=== PATIENT | male | born 1955 | race African-American/Black ===

== ENCOUNTER 2020-03-21 18:38 | Emergency (ER) | payer OTHER ==
[~2020-03-21] VITALS: Ht 180.3 cm; Wt 99.8 kg
[~2020-03-21 18:38] MED LIST: AMIODARONE HCL400 MG PO; ASA81BEC PO; BENAZEPRIL HCL40 MG PO; CARVEDILOL25 MG PO; CLONIDINE HCL0.1 M1 PO; FUROSEMIDE 20 M20 MG PO; GLIMEPIRIDE1 MG PO; ISOSORBIDE DINI20 M2 PO; KLOR-CON M2020 MEQ PO; LIPITOR 20 MG T20 M1 PO; VITAMIN D-40010 MCG PO; XARELTO15 MG PO; ZITHROMAX TRI-500 MG PO
[2020-03-21 23:44] VITALS: BP 145/85
== END 2020-03-21 23:45 ==
LOC: ER 18:38
DX: T85.698A Other mechanical complication of other specified internal prosthetic devices, implants and grafts, initial encounter (principal); I48.91 Unspecified atrial fibrillation; E78.5 Hyperlipidemia, unspecified; I13.0 Hypertensive heart and chronic kidney disease with heart failure and stage 1 through stage 4 chronic kidney disease, or unspecified chronic kidney disease; E11.22 Type 2 diabetes mellitus with diabetic chronic kidney disease; N18.4 Chronic kidney disease, stage 4 (severe); I50.9 Heart failure, unspecified; Z79.899 Other long term (current) drug therapy

== ENCOUNTER 2020-04-02 02:11 | Inpatient (IN) | payer OTHER ==
[2020-04-02] VITALS (54 sets, daily range): BP systolic 125–166; BP diastolic 72–96
[~2020-04-02] VITALS: Ht 180.3 cm; Wt 89.4 kg
[2020-04-02 02:44] LABS: BE(vivo) 5.2 mmol/L (-2 to +3); HCO3 29.8 mmol/L (22.0-26.0); PCO2 44.5 mmHg (35.0-45.0); PO2 56.9 mmHg (80.0-100.0); pH 7.444 (7.360-7.450); sO2 90.5 % (92.0-98.0)
[2020-04-02] MEDS ORDERED: PROAIR HFA8.5 GM INH (03:03)
[2020-04-02] MEDS ORDERED: HYDROCODON-ACE1 EAC7 PO (03:04)
[2020-04-02] MEDS ORDERED: LOPERAMIDE 2 MG2 M1 PO (03:04)
[2020-04-02] MEDS ORDERED: HUMALOG100 UNIT/1 SUBQ (03:05)
[2020-04-02] MEDS ORDERED: ELIQUIS5 MG PO (03:05)
[2020-04-02] MEDS ORDERED: CARVEDILOL12.5 MG PO (03:06)
[2020-04-02] MEDS ORDERED: HYDRALAZINE 2525 M1 PO (03:06)
[2020-04-02] MEDS ORDERED: SENNA8.6 MG PO (03:09)
[2020-04-02] MEDS ORDERED: ZOSYN 2.252.25 GM/51 IV (03:12)
[2020-04-02] MEDS ORDERED: PROTONIX40 M2 PO (03:12)
[2020-04-02] MEDS ORDERED: VITAMIN D310 MC4 PO (03:15)
[2020-04-02] MEDS ORDERED: LANTUS SUBQ (03:16)
[2020-04-02] MEDS ORDERED: PACERONE200 MG PO (03:16)
[2020-04-02 04:07] LABS: MCHC 31.4 g/dL (28.0-37.0); RDW 21.4 % (10.5-14.5)
[2020-04-02 04:11] LABS: MCH 26.2 pg (26.0-34.0); MCV 83.5 fL (80.0-100.0); PLATELET COUNT 200 thou/uL (150-400); RBC 2.38 mil/uL (4.50-6.00); WBC 7.3 thou/uL (4.0-11.0)
[2020-04-02 04:13] LABS: ANION GAP 6 mmol/L (7-16); BUN 31 mg/dL (7-18); CALCIUM 8.1 mg/dL (8.5-10.1); CHLORIDE 101 mmol/L (98-107); CO2 31 mmol/L (21-32); CREATININE 4.7 mg/dL (0.7-1.3); GLUCOSE 98 mg/dL (74-106); SODIUM 138 mmol/L (136-145)
[2020-04-02 04:15] LABS: POTASSIUM 4.8 mmol/L (3.5-5.1)
[2020-04-02 04:18] LABS: HEMOGLOBIN 6.3 gm/dL (14.0-18.0)
[2020-04-02 04:19] LABS: HEMATOCRIT 19.9 % (42.0-52.0)
[2020-04-02 04:25] LABS: MAGNESIUM 1.9 mg/dL (1.8-2.4); PHOSPHORUS 2.4 mg/dL (2.6-4.7); SGOT 53 U/L (15-37); SGPT 16 U/L (16-63); TOTAL BILIRUBIN 0.5 mg/dL (0.2-1.0); TOTAL PROTEIN 6.7 g/dL (6.4-8.2); TROPONIN-I <0.06 ng/mL (<0.06)
[2020-04-02 05:00] LABS: ANISOCYTOSIS 2+; HYPOCHROMASIA 2+; LARGE PLATELETS FEW; MICROCYTES 1+; POLYCHROMASIA 1+
[2020-04-02] MEDS ORDERED: PROCRIT10000 UNIT SUBQ (05:30)
--- NOTE | 2020-04-02 07:21 | EKG ---
[place] [address] [facility] [place] [address] ELECTROCARDIOGRAM REPORT Name: STEFANI WHITTEN Room #: 170-8 ADM IN M.R.#: [id number] Admission: 04/02/20 Attend Phys: Yaneli Mauricio Discharge: Date of : 51 Report #: [id number] [facility] ED Test Date: 2020-04-02 Test Time: 02:42:39 Pat Name: STEFANI WHITTEN Department: Room: 170 Gender: M Nurse Extern: PAYTON : 1955 Requested By: Jairo Cortes Order Number: [id number] MD: Rene Jordan Measurements Intervals [place] Rate: 69 P: -31 DE: 184 QRS: -11 QRSD: 100 T: 181 QT: 471 QTc: 505 Interpretive Statements Sinus rhythm Atrial premature complex Nonspecific repol abnormality, diffuse leads Baseline wander in lead(s) V2,V3,V6 No previous ECG available for comparison Electronically Signed On 04-02-2020 7:20:49 PIG CONVEYOR OPERATOR by Rene Jordan [email or web address] <ELECTRONICALLY SIGNED> By: Rene Jordan MD, [facility] 04/02/20 0720 1 1 Rene Jordan MD, FACC /EPI
--- NOTE | 2020-04-02 12:06 | NUR ---
THIS NURSE SPOKE WITH DR BANKS REGARDING PT'S COVID STATUS PER FACILITY ([facility]), PT TESTED POSITIVE AT FACILITY YESTERDAY AND HAS NOT BEEN TESTED IN THIS DEPARTMENT. RESULT FROM FACILITY FAXED AND ATTACHED TO PT'S RECORD. PER DR BANKS, RESULT FROM FACILITY SHOULD SUFFICE.
--- NOTE | 2020-04-02 15:10 | NUR ---
assessment: CM REVIEWED CHART. PT WAS ADMITTED FROM [facility] AND HAS TESTED POSITIVE FOR COVID 19, RESULTS CAME TO FACILITY THIS AM LIASON REPORTED. PT WAS HAVING SHORTNESS OF AIR WELL COUGH. PT IS CURRENTLY IN ENHANCED ISOLATION. PT HAS HX ESRD AND GETTING DIALYSIS MWF. PRIOR TO HIS SNF STAY PT WAS LIVING AT HOME WITH SIGNIFICANT OTHER CAILIN AND WAS PRETTY INDEPENDENT THEN. SPOKE WITH LIASON FROM [facility] AND SHE REPORTS THAT THEY WILL BE ABLE TO ACCEPT PT BACK IF NEEDED AT DISCHARGE THEY HAVE NO REOPENED THEIR COVID UNIT. CM REQUESTED LIASON FROM [facility] TO CHECK IF THEY HAVE ANY CPODA PAPEROWRK AND IF SO FAX TO [facility]. SENIOR ANALYTIC CONSULTANT IS FAXING CLINICAL TO FACILITY. CM WILL CONTINUE TO FOLLOW TO ASSIST NEEDED.
--- NOTE | 2020-04-02 15:11 | NUR ---
PATIENT ADMITTED TO 238 FROM E.D THIS AFTERNOON, ALERT AND ORIENTED AND DENIED PAIN. VITALS STABLE AND SULKY DRIVER SETTING UP FOR PATIENT'S DIALYSIS. ADMISSION HISTORY OBTAINED FROM PATIENT AND ADMISSION ASSESSMENT DOCUMENTED. CONSULTS NOTIFIED. PATIENT STARTED ON DIALYSIS AND SIGNIFICANT OTHER WILL BE NOTIFIED SHORTLY. CONSENTS SIGNED BY PATIENT INCLUDING BLOOD CONSENT. BLOOD TRANSFUSION BY DIALYSIS NURSE FLORENCIA. CARE PLAN ACTIVATED.
--- NOTE | 2020-04-02 16:24 | NUR ---
FAXED CLINICAL UPDATE TO [facility] RECEIVED CONFIRMATION AND LEFT MSG WITH EDWIN IN ADM.
--- NOTE | 2020-04-02 16:39 | NUR ---
PATIENT'S SIGNIFICANT OTHER NOTIFIED OVER THE PHONE ON PATIENT'S ADMISSION TO ICU, UPDATED ON PATIENT'S CONDITION PER PATIENT'S REQUEST AND QNS ANSWERED. FOUR DIGIT PRIVACY CODE PROVIDED AND INFORMED ONLY ONE PERSON TO CALL FOR UPDATES AND UPDATE THE REST OF THE FAMILY.
[2020-04-03] VITALS (111 sets, daily range): BP systolic 114–151; BP diastolic 62–86
[2020-04-03 02:06] LABS: GLYCOHEMOGLOBIN (HGB A1C) 5.1 % (4.8-5.6)
[2020-04-03 04:06] LABS: HEPATITIS B SURFACE AG Negative (Negative)
--- NOTE | 2020-04-03 05:01 | HC ---
[facility] [place] [address] [place] [address] CONSULTATION Name: STEFANI WHITTEN Room #: 238-P ADM IN M.R.#: [id number] Admission: 04/02/20 Attend Phys: Yaneli Mauricio Discharge: Date of : 51 Report #: [id number] THIS REPORT FOR: cc: Mack Cox MD, Christopher B. MD Barry, Joseph W. MD ~ DATE OF SERVICE: 04/02/2020 INFECTIOUS DISEASE CONSULTATION ATTENDING PHYSICIAN: Dr. Mauricio. REASON FOR EVALUATION: COVID-19 infection, complicated by pneumonitis and respiratory failure. HISTORY OF PRESENT ILLNESS: The patient has extensive medical history both chronically and as of late. His diabetes mellitus has been complicated by end-stage renal disease, on dialysis. Had a recent extended hospitalization, perforated diverticulitis complicated by peritonitis and abscess, had a partial colectomy, now has a longstanding percutaneous DONNY drain. His course was complicated as well by septic shock and been on several week history of parenteral therapy, which he was not aware of the name, although suggests Zosyn. He is noted to be progressively dyspneic, and he is scheduled to undergo dialysis shortly. Initial ABG showed hypoxemia with a pO2 of 56.9 on room air. ProBNP elevated at 33,380 and albumin of 1.0. Procalcitonin slightly elevated at 1.76. He has been afebrile. He is generally lucid at this point. He is empirically started on therapy with Zosyn and given a dose of vancomycin as well. ALLERGIES: None known. MEDICATIONS: Currently include vancomycin, insulin glargine, Zosyn, cholecalciferol, isosorbide dinitrate, amiodarone, apixaban, zinc, ascorbic acid, pantoprazole, hydrocodone, and dexamethasone. PAST MEDICAL HISTORY: As described above, diabetes mellitus complicated by end-stage renal disease, on hemodialysis; has cardiomyopathy, coronary artery disease; hypertension; hyperlipidemia; reflux; paroxysmal atrial fibrillation; recent septic shock due to perforated diverticulitis with peritonitis and abscess; post partial colectomy, has still indwelling DONNY drain with no ostomy. SOCIAL HISTORY: Nonsmoker, no ethanol. FAMILY HISTORY: Noncontributory. [facility] [address] [place] [address] CONSULTATION Name: STEFANI WHITTEN Room #: 238-P [facility] IN M.R.#: [id number] Admission: 04/02/20 Attend Phys: Yaneli Mauricio Discharge: Date of : 51 Report #: [id number] REVIEW OF SYSTEMS: Otherwise, unremarkable 10-point review of systems with exception of the above. He has had some ongoing diarrhea, which he attributes to the antibiotics as opposed to a short gut syndrome. PHYSICAL EXAMINATION: GENERAL: He appears chronically ill, undernourished. He is pleasant, cooperative, moderate distress. VITAL SIGNS: Temperature 97.6, pulse 74, respirations 24, blood pressure 133/83. SKIN: Warm, dry, no rashes. HEENT: Otherwise, unremarkable. He is on 1 liter per nasal cannula. NECK: Supple. LUNGS: Few scattered coarse breath sounds, some crackles. HEART: Regular. Does have a soft systolic murmur. ABDOMEN: Distended, somewhat taut, does have the drain in the right upper quadrant. It is not overtly tender. GENITOURINARY AND RECTAL: Deferred. LABORATORY DATA: Troponin less than 0.06. Chest x-ray showed cardiomegaly, focal areas of atelectasis and pneumonia in the right upper lobe and throughout both lower lobes. CBC: White count of 7.3, H and H 6.3 and 19.9, platelets of 200. Does have an eosinophilia roughly 730, 10%. Procalcitonin 1.76. Lactic acid 1.5. Electrolytes: Sodium 138, potassium 4.8, chloride 101, bicarbonate is 31, anion gap of 6, BUN and creatinine 31 and 4.7, albumin 1.0. Total protein 6.7, proBNP of 33,380. ABGs as described above, pH 7.44, pCO2 44.5, pO2 of 56.9 on room air. ASSESSMENT AND PLAN: COVID-19 infection, complicated by pneumonitis, likely multifactorial. Suspect component of congestive heart failure as well. He is profoundly malnourished as well with albumin of 1.0. In addition he is on hemodialysis. We will continue empiric therapy with the coronavirus, initiate remdesivir doses after dialysis as well as ivermectin. He has been started on dexamethasone and vitamins. We will obtain [facility] from [facility]. He remains quite tenuous. Try to optimize his nutritional status. We will add incentive spirometry, may benefit in the short-term with the dialysis. <ELECTRONICALLY SIGNED> By: Daryl Vásquez MD 04/03/20 0501 1324 1823 Daryl Vásquez MD /nt
[2020-04-03 05:36] LABS: HEMATOCRIT 20.3 % (42.0-52.0); HEMOGLOBIN 6.5 gm/dL (14.0-18.0); MCH 27.1 pg (26.0-34.0); MCHC 31.9 g/dL (28.0-37.0); MCV 84.9 fL (80.0-100.0); RBC 2.39 mil/uL (4.50-6.00)
[2020-04-03 05:43] LABS: ALBUMIN 1.1 g/dL (3.4-5.0); CALCIUM 7.6 mg/dL (8.5-10.1); DIRECT BILIRUBIN 0.2 mg/dL (<0.1-0.2); TOTAL BILIRUBIN 0.4 mg/dL (0.2-1.0); TOTAL PROTEIN 5.9 g/dL (6.4-8.2)
[2020-04-03 05:45] LABS: CREATININE 3.1 mg/dL (0.7-1.3); POTASSIUM 2.9 mmol/L (3.5-5.1)
--- NOTE | 2020-04-03 18:41 | NUR ---
PATIENT PROGRESSING IN PLAN OF CARE. TO ROOM AIR. DIALYSIS TODAY. MED SURG TELE STATUS. SPOKE WITH FAMILY ON THE PHONE TO GIVE PATIENT UPDATE (). GOOD APPETITE
[2020-04-04] VITALS (30 sets, daily range): BP systolic 116–150; BP diastolic 64–91
[2020-04-04 09:58] LABS: ABSOLUTE NEUTROPHILS 5.8 thou/uL (1.4-8.2); BASOPHILS 0.3 % (0.0-2.0); EOSINOPHILS 0.2 % (0.0-3.0); HEMATOCRIT 22.6 % (42.0-52.0); HEMOGLOBIN 7.1 gm/dL (14.0-18.0); LYMPHOCYTES 21.7 % (24.0-44.0); MCH 26.9 pg (26.0-34.0); MCHC 31.5 g/dL (28.0-37.0); MCV 85.4 fL (80.0-100.0); MONOCYTES 11.9 % (1.0-8.0); POLYS 65.9 % (36.0-66.0); RBC 2.65 mil/uL (4.50-6.00); WBC 8.8 thou/uL (4.0-11.0)
[2020-04-04 10:05] LABS: PLATELET COUNT 207 thou/uL (150-400)
[2020-04-04 10:08] LABS: ALBUMIN 1.2 g/dL (3.4-5.0); CALCIUM 8.4 mg/dL (8.5-10.1); CREATININE 2.4 mg/dL (0.7-1.3); MAGNESIUM 1.8 mg/dL (1.8-2.4); TOTAL BILIRUBIN 0.5 mg/dL (0.2-1.0); TOTAL PROTEIN 6.6 g/dL (6.4-8.2)
[2020-04-04 10:14] LABS: POTASSIUM 2.8 mmol/L (3.5-5.1)
[2020-04-04 10:40] LABS: ANISOCYTOSIS 2+; POIKILOCYTOSIS SLIGHT
[2020-04-04 10:41] LABS: HYPOCHROMASIA 1+; OVALOCYTES OCCASIONAL; TEARDROPS OCCASIONAL
--- NOTE | 2020-04-04 18:53 | NUR ---
PATIENT ADVANCING TOWARDS PLAN OF CARE. ADEQUATE APPETITE. PLAN FOR DIALYSIS TOMORROW.
[2020-04-05] VITALS (41 sets, daily range): BP systolic 109–146; BP diastolic 63–87
[2020-04-05 03:12] LABS: ALBUMIN 1.2 g/dL (3.4-5.0); DIRECT BILIRUBIN 0.2 mg/dL (<0.1-0.2); TOTAL BILIRUBIN 0.5 mg/dL (0.2-1.0); TOTAL PROTEIN 6.1 g/dL (6.4-8.2)
--- NOTE | 2020-04-05 07:40 | NUR ---
PATIENT HAD MULTIPLE BMs OVERNIGHT. MADE NPO AT [address] RUIZ, TO EVALUATE RIGHT ABDOMINAL DONNY DRAIN FOR POSSIBLE REMOVAL OR REPLACEMENT. ABDOMINAL CAT SACN ORDERED. MAY HAVE PO MEDICATION. SOCORRO INFORMED THIS RN HE WEAR BIPAP AT NIGHT AT HOME. HE DOES NOT HAVE HIS BIPAP WITH [facility], ALSO ASKED IF HE COULD SPEAK TO A BUSINESS BANKING SALES ASSISTANT ABOUT GETTING HELP WITH A NEW BIPAP MASK THAT WOULD FIT HIM BETTER. THIS INFORMATION WAS PASSED ON IN SHIFT HAD OFF.
--- NOTE | 2020-04-05 10:53 | NUR ---
ASSUMED CARE OF PT AT 0700 DR. ALLEN AT BEDSIDE AT [address] OF THAT ABDOMEN TO BE DONE DUE TO THE DONNY DRAIN PUTTING OUT PUSS. TOOK PT TO CT AT [address] ALLEN AT 1040 TO SEE IF HE STILL WANTED THE PT NPO OR IF HE CAN GO AHEAD AND EAT.
--- NOTE | 2020-04-05 11:04 | NUR ---
PAGED DR. DEWITT PER HIS REQUEST TO LET HIM KNOW THE PT IS BACK FROM CT.
--- NOTE | 2020-04-05 11:43 | NUR ---
WOUND CONSULT; THE PATIENT HAS A SMALL STAGE 2 TO THE LEFT BUTTOCK. NO INFECTION S/S. THERE IS EVIDENDENCE THIS PATIENT HAD HAD THIS A WHILE. THERE IS A TENDER AND FRAGIALLY HEALED AREA BEHIND THE RIGHT EAR FROM O2 TUBING. (MECHANICAL INJURY) RECOMMENDATION; ZGUARD TO BUTTOCKS CUT A SMALL FOAM DRESSING PLACE BEHIND THE EAR. DISCUSSED WITH KRISTEN
[2020-04-06] VITALS (15 sets, daily range): BP systolic 118–154; BP diastolic 62–92
[2020-04-06 04:10] LABS: ALBUMIN 1.2 g/dL (3.4-5.0); CALCIUM 7.7 mg/dL (8.5-10.1); CREATININE 2.7 mg/dL (0.7-1.3); PHOSPHORUS 1.8 mg/dL (2.5-4.9); POTASSIUM 3.5 mmol/L (3.5-5.1)
--- NOTE | 2020-04-06 16:20 | NUR ---
CM CONTACTED PT VIA TELEPHONE, HE TOLD RNKRISTOPHER, HE HAD QUESTIONS. PT STATED HE HAD TALKED TO "SURGEON" WHO TOLD HIM HE WOULD BE MOVED "WHEN A BED WAS AVAILABLE." PT STATED "THEY...SHOULD I SAY THE DOCTORS SAID THEY THINK I MIGHT NOT NEED IT [DIALYSIS] THAT'S WHY THEY DIDNT GIVE ME A PERMANANT PORT. PT STATED HE "CONTRACTED COVID FROM [facility]." PT IS ADAMANT HE DOES NOT WANT TO RTRN TO [facility]. PT STATED WHILE IN SNF HE WENT TO [facility], BUT HE WAS TOLD BY [facility] THEY COULDNT SRVC HIM B/C "THEY DIDNT HAVE A LIFT. PT STATED HE IS CURRENTLY RECEIVING DIALYSIS. PT ALSO WANTED TO KNOW IF HE WOULD GET DME FOR GAIT D/T "WEAKNESS." CM EXPLAINED THAT WILL BE DETERMINED AFTER WORKING W/THERAPIES, AND CM FURTHER EDU PT ON THE PROCESS. PT LIVES W/ "SIGNIFICANT OTHER." PT HAS 12 STAIRS ON INSIDE AND 0 STA[address]. PT HAS CPAP MACHINE AT HOME. CM TO CONT TO FOLLOW.
[2020-04-06 16:27] LABS: HEMATOCRIT 23.8 % (42.0-52.0); HEMOGLOBIN 7.4 gm/dL (14.0-18.0); MCH 26.8 pg (26.0-34.0); MCHC 30.9 g/dL (28.0-37.0); MCV 86.7 fL (80.0-100.0); RBC 2.75 mil/uL (4.50-6.00); RDW 22.6 % (10.5-14.5); WBC 11.1 thou/uL (4.0-11.0)
--- NOTE | 2020-04-06 19:21 | NUR ---
Patient is Med/surg status and advancing toward goals. His saturations remain >92% on RA. He turned and pivoted twice today, tolerated sitting the recliner x3 hours, and performs bed mobility exercises independtly though he remains weak. His DONNY drain remains patent with only 20ml of output in the last 12 hours.
[2020-04-07 04:26] VITALS: BP 131/84
[2020-04-07 07:10] VITALS: BP 148/91
--- NOTE | 2020-04-07 15:25 | NUR ---
SW reviewed chart and spoke with nursing and attending physician. Pt was transferred to from ICU. Remains in Enhanced Isolation due to COVID.Pt is afebrile and on 1L of O2. Pt is on IV abx and IV steroids. Pt had stated that he does not want to return to [facility]. SW spoke with pt via phone briefly. Pt having dialysis. SW will contact pt tomorrow morning to discuss alternate options. CARLOS is following to assist as needed with discharge planning.
[2020-04-07 16:10] VITALS: BP 126/74
--- NOTE | 2020-04-07 19:05 | NUR ---
PATIENT HAD DIALYSIS TODAY AND TOLERATED WELL. NOW SLEEPING. WILL CONT WIT PLAN OF CARE.
[2020-04-07 19:53] VITALS: BP 127/73
--- NOTE | 2020-04-07 22:16 | NUR ---
PT RESTING IN BED WATCHING TV. PT HAS ON NC 1 L FOR COMFORT ANXIETY. LUNGS WHEEZES. DONNY DRAIN INTACT, YELLOW THICK DRAINAGE. RIJ REINFORCED WITH TAPE. R CHEST TESIO INTACT. PT PROVIDED HS SNACK. BED ALARM ON. PT HAD LOOSE STOOL, HELD LAXATIVE.
[2020-04-08 04:35] VITALS: BP 143/97
--- NOTE | 2020-04-08 06:48 | NUR ---
PT WAS AWAKE ALL NIGHT AND THEN FELL ASLEEP THIS AM.
[2020-04-08 08:07] VITALS: BP 137/76
[2020-04-08 12:52] LABS: HEMOGLOBIN 7.9 gm/dL (14.0-18.0); MCH 27.4 pg (26.0-34.0); MCHC 31.6 g/dL (28.0-37.0); MCV 86.5 fL (80.0-100.0); RBC 2.89 mil/uL (4.50-6.00); RDW 23.5 % (10.5-14.5); WBC 11.7 thou/uL (4.0-11.0)
[2020-04-08 14:31] LABS: ALBUMIN 1.5 g/dL (3.4-5.0); CALCIUM 8.2 mg/dL (8.5-10.1); CREATININE 3.3 mg/dL (0.7-1.3); POTASSIUM 3.4 mmol/L (3.5-5.1); TOTAL BILIRUBIN 0.7 mg/dL (0.2-1.0); TOTAL PROTEIN 6.9 g/dL (6.4-8.2)
--- NOTE | 2020-04-08 15:17 | NUR ---
CARLOS reviewed chart and spoke with nursing and attending physician. Pt remains in Enhanced Isolation due to COVID. Pt is afebrile and on 0.5L of O2. Pt is on IV abx and IV steroids. CARLOS spoke with pt via phone to discuss options for SNF when ready for discharge. CARLOS discussed SNFs who have onsite dialysis. Pt states he was at [facility], but had to go to his outpatient dialysis clinic. He was unsure why and would like a referral to be sent there for review. CARLOS faxed referral and spoke with Sejal in admissions. Info to be reviewed and determine if pt is able to do onsite dialysis. CARLOS discussed with loftsman/woman. CARLOS placed call back to pt's room. No answer. Will follow up with pt to discuss discharge planning.
--- NOTE | 2020-04-08 17:13 | NUR ---
PATIENT NOW RESTING IN ROOM AT THIS TIME. HE HAS BEEN ENCOURAGED BY NURSE AND TO MAKE ATTEMPTS TO PARTICIPATE IN CARE THAT I HELFUL FOR HIS OVERALL PROGRESS. PATIENT DID NOT LIKE THIS SUGGESTION. HE STATED THAT HE IS TOO WEAK TO DO ANYTHING FOR HIMSELF. NURSE AGREED WITH HIM ABOUT HIS WEAKNESS BUT EMPHASIZE THAT TO OVERCOME THIS WEAKNESS HE WILL BENEFIT FROM ACTIVELY PARTICIPATING IN CARE.
[2020-04-08 19:12] VITALS: BP 126/67
--- NOTE | 2020-04-08 21:02 | NUR ---
PT WATCHING TV IN BED. PT DISCUSSED HOW HE GOT UP TO CHAIR WITH PT BUT THAT IT WAS NOT EASY. PT CONTINUES WITH O2 NC 2L, SATS 100% BUT WANTS IT FOR COMFORT. DONNY INTACT. R CHEST TESIO AND RIJ INTACT. PT HAD BM SOFT NOT LOOSE. HELD LAXATIVE. PT PROVIDED HS SNACK PER HIS REQUEST. PT WANTED TO KNOW IF HE WOULD BE TESTED TO SEE IF HE NO LONGER HAS COVID. BED ALARM ON.
[2020-04-09 05:03] VITALS: BP 133/76
[2020-04-09 07:37] VITALS: BP 136/95
--- NOTE | 2020-04-09 12:46 | 2DMMODE ---
[facility] [place] [address] [place] [address] 2 D/M-MODE ECHOCARDIOGRAM Name: STEFANI WHITTEN Room #: 359-P ADM IN M.R.#: [id number] Admission: 04/02/20 Attend Phys: Yaneli Mauricio Discharge: Date of : 51 Report #: [id number] THIS REPORT FOR: cc: Mack Cox MD, Christopher B. MD Lundgren, Craig H. MD [facility] ~ APPROVED REPORT Study performed: 04/09/2020 11:33:08 EXAM: Limited 2D, Doppler, and color-flow Echocardiogram Patient Location: Bedside Room #: 359 Status: routine BSA: 2.14 HR: 73 bpm BP: 136/95 mmHg Indications Diabetes Cardiomyopathy Hypertension/HDD Hx afib, HLD 2D Dimensions RVDd: 38.56 mm IVSd: 9.62 (7-11mm) LVDd: 54.30 mm PWd: 10.01 (7-11mm) LVDs: 45.83 (25-40mm) IVC: 22.00 mm Tricuspid Valve TR Peak Davi.: 2.84 m/s RAP Estimate: 15.00 mmHg TR Peak Gr.: 32.34 mmHg Left Ventricle Left ventricle is at the upper limits of normal. There is global hypokinesis of the left ventricle. There is normal left ventricular wall thickness. Left ventricular systolic function is severely decreased. LVEF is 25-30%. Right Ventricle Right ventricle is at the upper limits of normal. [facility] [address] [place] [address] 2 D/M-MODE ECHOCARDIOGRAM Name: STEFANI WHITTEN Room #: 359-P ADM IN M.R.#: [id number] Admission: 04/02/20 Attend Phys: Yaneli Turner Discharge: Date of : 51 Report #: [id number] [facility] The left atrium size is normal. Aortic Valve The aortic valve is mildly sclerotic. Mild aortic regurgitation. There is no aortic valvular stenosis. Mitral Valve The mitral valve is normal in structure. Mild to moderate mitral regurgitation. No evidence of mitral valve stenosis. Tricuspid Valve The tricuspid valve is normal in structure. Mild tricuspid regurgitation. PAP is estimated at 40 mmHg. Pulmonic Valve The pulmonary valve is normal in structure. Trace pulmonic regurgitation. Great Vessels The aortic root is normal in size. IVC is mildly dilated and collapses <50% with inspiration. Pericardium There is no pericardial effusion. <Conclusion> Abbreviated study Left ventricular systolic function is severely decreased. There is global hypokinesis of the left ventricle. LVEF is 25-30%. The aortic valve is mildly sclerotic. Mild aortic regurgitation, no stenosis. The mitral valve is normal in structure. Mild to moderate mitral regurgitation. Mild tricuspid regurgitation. Pulmonary artery pressure estimated at 40 mmHg. There is no pericardial effusion. <ELECTRONICALLY SIGNED> By: Gabe Olivas MD, [facility] 04/09/20 1246 1246 1246 Gabe Olivas MD, [facility] /INF
[2020-04-09 13:03] LABS: HEMATOCRIT 24.2 % (42.0-52.0); HEMOGLOBIN 7.4 gm/dL (14.0-18.0)
--- NOTE | 2020-04-09 14:05 | NUR ---
CARLOS reviewed chart and spoke with nursing and attending physician. Pt remains in Enhanced Isolation due to COVID. Pt is progressing towards goals for discharge. CARLOS received call from Sejal in admissions at [facility] who states pt is into his copay days for skilled and will have a $1288/week copay for skilled until he meets is out of pocket deductible for the year. [facility] is able to accept pt if he is willing to pay the copay. Will be billed on a weekly basis. CARLOS has placed multiple calls to pt's room today to provide update and discuss discharge plan. No answer. CARLOS has requested nursing to call SW from pt's room. Will need insurance auth for skilled placement. CARLOS is following to assist as needed with discharge planning.
[2020-04-09 15:36] VITALS: BP 131/84
[2020-04-09 19:39] VITALS: BP 119/68
--- NOTE | 2020-04-10 02:37 | NUR ---
CONTINUES ON THE 2 LITERS. HAS BEEN HAVING BOWEL MOVEMENTS THIS SHIFT, WHICH ARE SOFT AND BROWN. FOUR BM'S THUS FAR. DENIES PAIN. HIS CALLED TO CHECK ON HIM. NO COMPLAINTS. HIS BREATHING IS COMFORTABLE ON 2.0 LITERS OF OXYGEN.
[2020-04-10 04:54] VITALS: BP 125/73
[2020-04-10 08:14] VITALS: BP 117/74
--- NOTE | 2020-04-10 15:43 | NUR ---
PT RESTING IN BED, REQUESTED REFILL ON DRINK, NO FUTHER NEEDS OR CONCERNS AT THIS TIME. DENIES PAIN, STATES R EAR HAS "MUFFLED SOUND". NO FOREIGN OBJECTS OBSERVED BY THIS RN.
[2020-04-10 16:38] VITALS: BP 120/71
[2020-04-10 20:39] VITALS: BP 127/81
[2020-04-11 04:02] VITALS: BP 117/70
--- NOTE | 2020-04-11 06:06 | NUR ---
continues to get regular turns. he calls most to the time. he is unable to know when it is time to use the bedpan. he is incontinjet of bm. no urine out put tonight. complains of pain to left knee tonight.
[2020-04-11 07:52] VITALS: BP 123/73
[2020-04-11 10:43] LABS: HEMOGLOBIN 6.5 gm/dL (14.0-18.0)
[2020-04-11 10:45] LABS: HEMATOCRIT 20.6 % (42.0-52.0)
[2020-04-11 14:33] VITALS: BP 111/62; BP 123/63
[2020-04-11 15:51] VITALS: BP 111/59; BP 119/66
[2020-04-11 21:17] VITALS: BP 128/77
[2020-04-12 05:00] VITALS: BP 121/77
--- NOTE | 2020-04-12 07:30 | NUR ---
Pt. slept intermittently during the night. Medicated for pain at HS then this am with some relief. Tolerating room air well with O2 sat in the upper 90's up to 100%. Pt. gets anxious and feels like he needs the oxygen at times brian at night. Assisted to reposition. Refused scheduled laxative at HS stating he had bm all day yesterday. Incontinent of soft bm x3 last night. Voiding per urinal. Lower abd old incision draining serosanguinous ,purulent dge with foul odor. Right DONNY also has approximately 5 ml of purulent dge.
[2020-04-12 08:11] VITALS: BP 123/74
[2020-04-12 08:51] LABS: HEMATOCRIT 24.4 % (42.0-52.0); HEMOGLOBIN 7.8 gm/dL (14.0-18.0)
--- NOTE | 2020-04-12 11:11 | NUR ---
WOUND CARE F/U; DR SALEEM SEEING PT, VIEWED ABD WOUND MID LINE, BLOODY DRAINAGE NOTED, DR STATES CT SCAN WILL BE DONE TODAY TO ASSESS ABD, DONNY DRAIN STILL IN PLACE, R ABD, PT EMOTIONAL, STATES "I FEEL LIKE I TAKE ONE STEP FORWARD, 2 STEPS BACK' SUPPORT GIVEN, WOUND R EAR RIM HEALED, L BUTTOCK WOUND HEALING, NO DRAINAGE, NO S/S INFECTION, PT STATES FOAM DRSG BUTTOCKS MAKES AREA FEEL BETTER RECOMMENDATIONS; ABD WOUND CARE PER SURGEON, Jose AGUARD TO L BUTTOCK WOUND, COVER W/ BORDER FOAM DRSG DAILY AND PRN BEVERAGE DISTILLER AWARE
--- NOTE | 2020-04-12 14:09 | NUR ---
CARLOS reviewed chart and spoke with nursing and attending physician. Pt remains in Enhanced Isolation. Pt is afebrile and not requiring O2. Pt is on IV abx and IV steroids. Awaiting input from surgery regarding any further plans. Pt will likely need to follow up at [facility] as an outpatient. CARLOS spoke with Sejal in admissions at [facility]. Pt has an annual $2500 out of pocket deductible for continued skilled services. Copay is $1288/week. CARLOS had discussed with pt about copay on Sunday. CARLOS placed call to pt's room to further discuss maximum out of pocket. No answer. Will need insurance authorizaiton for skilled. CARLOS is following to assist as needed with discharge planning.
[2020-04-12 20:08] VITALS: BP 129/77
[2020-04-13 04:14] VITALS: BP 130/79
--- NOTE | 2020-04-13 05:25 | NUR ---
NOTED CT ABD RESULT. PT REPORTS THAT HE DID NOT HAVE A VISIT FROM ANY PHYSICIANS LAST NIGHT. NOTED ORDER FOR CT GUIDED PERCUTANEOUS DRAIN PLACEMENT INTO THE INTRA-ABDOMINAL ABCESS TODAY. ONLY 2-3ML OF THICK BROWN EXTREMELY MALODOROUS DRAINAGE FROM zak DRAIN. NO FEVER NOTED. NO CHILLS/SWEATS REPORTED.
[2020-04-13 08:06] VITALS: BP 130/78
[2020-04-13 15:03] VITALS: BP 129/80
[2020-04-13 19:38] VITALS: BP 113/68
--- NOTE | 2020-04-13 19:42 | NUR ---
RN ASSUMED PT'S CARE AT 0700AM, PT IS A&OX3, PT HAD CT ABD ABSCESS DRAINAGE DONE TODAY, NEW J-P DRANIAGE TUBE IN ABD MIDLINE, PT IS TOLERATED, SMALL PURULENT DRAINAGE , PT IS ON RA, PT'S VS ARE STABLE,PT'S PAIN CAN CONTROL BY MEDICATION. PT STARTS EAT AT DINNER TIME,
--- NOTE | 2020-04-14 01:21 | NUR ---
PT RESTING IN BED WATCHING TV. LUNGS WITH WHEEZES, PT CONTINUES TO REQUEST PRN O2. PT INCONTINENT OF STOOL, HELD LAXATIVE. ABD JPS INTACT, ABD DRESSING DRY AND INTACT. PT DOES ASSIST WITH REPOSITIONING, BUT DOES NOT INITIATE. PT FREQUENTLY USING CALL LIGHT FOR ASSISTANCE WITH TV, BED ITEMS. IV AND CHEST TESIO INTACT. BLUNTED AFFECT [facility] CONTACT. PTS CALLED FOR UPDATE. STATED PT IS NOT CALLING HER OR HIS SONS TO TALK. PT PROVIDED PHONE AND ASKED HIM TO CALL HIS AND SONS. PT STATED HE NEEDED HIS WIFES PHONE NUMBER AND PROVIDED. PT PROVIDED HS SNACK. BED ALARM ON.
[2020-04-14 03:37] VITALS: BP 126/78
[2020-04-14 06:28] LABS: ALBUMIN 1.3 g/dL (3.4-5.0); CALCIUM 7.8 mg/dL (8.5-10.1); CREATININE 3.6 mg/dL (0.7-1.3); PHOSPHORUS 3.5 mg/dL (2.5-4.9); POTASSIUM 3.7 mmol/L (3.5-5.1)
[2020-04-14 07:51] VITALS: BP 122/76
[2020-04-14 09:20] LABS: HEMATOCRIT 22.7 % (42.0-52.0); HEMOGLOBIN 7.3 gm/dL (14.0-18.0)
--- NOTE | 2020-04-14 10:33 | NUR ---
WOUND CARE F/U; DUE TO COVID RESTRICTIONS I DISCUSSED THE PATIENT WITH THE CAMERA REPAIR TECHNICIAN TODAY. CURRIENTLY THE PATIENT HAS UNCONTROLLED DIARRHEA. THE PATIENT HAS A SUPERFICIAL LEFT BUTTOCKS WOUND USING ZGUARD. RECOMMENDATIONS; -USE BARRIER CREAM TO ALL AREAS IN CONTACT WITH THE DIARRHEA AFTER EACH EPISODE. DISCUSSED WITH CAMERA REPAIR TECHNICIAN.
[2020-04-14] MEDS ORDERED: LEVOFLOXACIN750 MG PO (12:08)
[2020-04-14] MEDS ORDERED: FLAGYL500 M1 PO (12:08)
--- NOTE | 2020-04-14 15:09 | NUR ---
CARLOS reviewed chart and spoke with nursing and attending physician. Pt remains in Enhanced Isolation due to COVID. Pt is afebrile and not requiring O2. Pt had drain placed yesterday by surgery. Pt is currently receiving dialysis. CARLOS spoke with Sejal in admissions at [facility]. They are able to accept pt pending insurance auth and confirmation from pt regarding copay. Per Sejal, the business office may be able to work out a payment plan with pt. Pt has a max of $2500 annual out of pocket deductible and then will be covered at 100%. Sejal to confirm days used at [facility]. CARLOS has been trying to get in touch with pt via phone today. Nursing to assist pt with calling SW after dialysis. CARLOS updated attending physician. Pt is having pain today and not ready for discharge. CARLOS is following to assist as needed with discharge planning.
[2020-04-14 15:37] VITALS: BP 120/73
--- NOTE | 2020-04-14 17:49 | NUR ---
ASSUMED CARE OF PT AT 0700. PT AOX4 IN NO ACUTE DISTRESS. COMPLAINS OF ABDOMINAL PAIN. KUB UNREMARKABLE. DIALYZED FOR 2.5L NC. NO OTHER CHANGES TO REPORT. WCM.
[2020-04-14 20:00] VITALS: BP 117/60
[2020-04-15 04:04] VITALS: BP 112/65
--- NOTE | 2020-04-15 06:14 | NUR ---
CPAP NOT IN USE DUE TO PT STATING MASK DOES NOT FIT HIM WELL AND WANTS 2l OVERNIGHT TO COMPENSATE. Q2 TURNS AND PAIN MANAGEMENT. PT CAN USE CALL LIGHT EFFECTIVELY TO EXPRESS NEEDS.
[2020-04-15] MEDS ORDERED: ACEROLA C500 MG PO (11:15)
[2020-04-15] MEDS ORDERED: ZOFRAN 4 MG ORAL4 MG PO (11:15)
[2020-04-15] MEDS ORDERED: HYDROCODON-ACE1 EAC7 PO (11:15)
[2020-04-15] MEDS ORDERED: VOLTAREN GEL 1100 G1 TOP (11:15)
[2020-04-15] MEDS ORDERED: ACIDOPHILUS1 EAC4 PO (11:15)
[2020-04-15] MEDS ORDERED: LISINOPRIL5 MG PO (11:15)
[2020-04-15] MEDS ORDERED: ZINC SULFATE 2220 MG PO (11:15)
--- NOTE | 2020-04-15 15:52 | NUR ---
CARLOS reviewed chart and spoke with nursing and attending physician. Pt remains in Enhanced Isolation due to COVID. Pt is afebrile and on 1L of O2. Pt is on IV pain meds. CARLOS faxed updates to [facility] for review. Facility will need Hep B panel for pt to have dialysis at their facility. Pt also has an out of pocket cost of $2500 per year. CARLOS spoke with pt via phone to discuss discharge plan. Pt became very tearful discussing the copay. Pt states he cannot afford and he is unsure about being able to agree to a payment plan. Pt states that he cannot apply for Medicaid, as he needs his income to take care of his house and family. Pt states he is too weak to go home and go to outpatient dialysis. CARLOS discussed with [facility] r[facility] rehabilitation. Consult ordered. CARLOS discussed with attending physician. CARLOS is following to assist as needed with discharge planning.
[2020-04-15 16:26] VITALS: BP 102/61
--- NOTE | 2020-04-15 16:57 | NUR ---
ASSUMED CARE OF PT AT 0700. PT AOX4 IN NO ACUTE DISTRESS. FUSSY AT TIMES. TEARFUL WHEN DISCUSSING PRISON PLANS. CURRENTLY STABLE FOR DISCHARGE. WAITING ON INSURANCE AUTH. ALYSSAM.
[2020-04-15 19:09] VITALS: BP 110/64
[2020-04-16 03:43] VITALS: BP 115/68
--- NOTE | 2020-04-16 07:15 | NUR ---
PAIN MANAGEMENT AND Q2 TURNS MAIN FOCUS FOR SHIFT. Q2 TURNS AND KEEPING PT CLEANED UP DUE TO INCONTINENCE. PT CAN USE CALL LIGHT TO EXPRESS NEEDS.
[2020-04-16 07:20] VITALS: BP 131/77
--- NOTE | 2020-04-16 07:47 | NUR ---
ID REMOVED PT FROM ISOLATION.
[2020-04-16 08:20] VITALS: BP 100/67
--- NOTE | 2020-04-16 10:01 | NUR ---
WOUND CARE F/U; ASSESSED L BUTTOCK WOUND, HEALING, NO S/S INFECTION, PINK VIABLE TISSUE, PT ALERT AND COOPERATIVE, STATES HE LIKES BORDER FOAM DRSG ON WOUND, "FEELS BETTER", PHOTO TAKEN, SEE PROCESS INTERVENTION FOR WOUND DETAILS, ABD DRSG INTACT, WOUND MANAGED BY SURGERY, WILL ORDER LOW AIR LOSS TO BED PT NOT MOVING WELL RECOMMENDATIONS; CONT ZGUARD TO L BUTTOCK WOUND, COVER W/ BORDER FOAM DRSG DAILY AND PRN OPERATIONAL ASSISTANT AWARE
--- NOTE | 2020-04-16 11:15 | NUR ---
CARLOS reviewed chart and spoke with nursing and attending physician. Enhanced Isolation precautions have been discontinued. Pt worked with PT earlier today and will have dialysis this afternoon. 5N consult ordered to evaluate pt. Will need insurance auth for 5N if accepted. CARLOS spoke with pt via phone. Pt very tearful regarding his situation and is hoping 5N will be an option. Pt's goal is to return home when stronger. CARLOS updated Sejal at [facility]. CARLOS is following to assist as needed with discharge planning.
--- NOTE | 2020-04-16 14:54 | NUR ---
Pt SEEN BY FRANK PARK NP FOR 5N ACUTE REHAB CONSULT. Pt HAS BEEN ACCEPTED TO 5N AND REQUEST FOR INSURANCE AUTHORIZATION SENT TO [facility] THIS AFTERNOON. REF # [id number]. FAXED CLINICALS PER [facility] REQUEST TO [phone]. WILL AWAIT RESPONSE FROM [facility] REGARDING AUTHORIZATION.
[2020-04-16 16:12] VITALS: BP 119/76
--- NOTE | 2020-04-16 18:04 | NUR ---
RN ASSUMED PT'S CARE AT 0700AM, PT IS A&OX3, PT'S VS ARE STABLE, PT'S ABD 2 DONNY TUBES ARE WORKING , SMALL DRAINAGE COMING, PT HAS GETTING UP TO ABS WITH 2 STAFF ASSIST, PT'S ABD PAIN HAS COMTROLLED BY MEDICATIONS AND REPORSITION , PT IS DOING DIALYSIS NOW, PT IS TOLERATIVE, PT'S COVID ISOLATION HAS DC PER ID DR
[2020-04-16 19:21] VITALS: BP 100/67
--- NOTE | 2020-04-17 03:04 | NUR ---
VSS FOR PT OVERNIGHT. COMPLETED DRESSING CHANGE ON ABDOMEN. PT REQUESTED PAIN MEDICATION X1. PT IS OUT OF ISOLATION PER ID/VS. PT IS BEING TRANSFERRED TO ROOM 459. REPORT GIVEN TO ANJANA.
[2020-04-17 04:04] VITALS: BP 104/64
[2020-04-17 07:31] VITALS: BP 108/67
--- NOTE | 2020-04-17 12:54 | NUR ---
Assumed pt care this am, on 2L of O2 via NC, VS stable. Does dialysis on MWF, right chest tessio in place. 2 DONNY drains present.
--- NOTE | 2020-04-17 15:06 | NUR ---
[facility] REPORTS THEY ARE UNABLE TO MAKE A DETERMINATION REGARDING AUTHORIZATION. THEY OFFERED OPPORTUNITY FOR PEER TO PEER UNTIL 04/19/2020 AT NOON.PHONE NUMBER [phone] OPTION #1. IF PEER TO PEER DECLINED [facility] WILL MAKE DETERMINATION WITH GIVEN INFORMATION.
[2020-04-17 15:40] VITALS: BP 107/60
[2020-04-17 21:23] VITALS: BP 110/66
--- NOTE | 2020-04-17 22:41 | NUR ---
ASSUMED CARE OF PT AT 1900. PT IS A/O X4 AND IS UP WITH ASSISTANCE. PT IS 100% O2 ON 2 LITERS NC. INCONTINENT OF STOOL. NO URINE OUTPUT SO FAR THIS NOC. DONNY DRAINS IN PLACE AT THE RUQ AND IS DRAINING YELLOW DRAINAGE. DRSGS TO ABDOMEN ARE C/D/I. NO INSULIN GIVEN WAS NOT INDICATED. BS WNL. RIGHT CHEST TESSIO IN PLACE WELL A [address]OTH IN PLACE AND APPEARS TO SHOW ZERO SIGNS OF REDNESS OR INFLAMMATION. PT C/O PAIN. PRN PAIN MEDICATION PROVIDED DIRECTED. REPOSITIONED IN BED TO HIS RIGHT SIDE AT THIS TIME. FALL PRECAUTIONS IN PLACE, CALL LIGHT IS WITHIN REACH. WILL ENDORSE TO ONCOMING NURSE AT 2300.
--- NOTE | 2020-04-17 23:19 | NUR ---
PT RESTING IN BED WATCHING TV. O2 PER NC, PRN ANXIETY. DONNY DRAINS INTACT. ABD DRESSING INTACT DRY. SMILING TALKATIVE. BED ALARM ON.
[2020-04-18 05:40] VITALS: BP 120/76
[2020-04-18 07:11] VITALS: BP 123/68
--- NOTE | 2020-04-18 18:29 | NUR ---
Assumed pt care at 7am.Pt in bed most of the times this shift.Assessment completed.vss.pt wanted to know if he will transfered to rehab today.Rn told pt that Dr Mauricio and rehab unit will be notify.Pt c/o abdominal pain,oral med given first but when no relief noted,iv med given.Pt was upset when told that he tika't transfer to rehab this evening due to his insurance restrictions.Dr Navarro has to discuss with pt's insurance in am.Pt requested for pillowcase folder phone number but unit number given.Pt informed to call the unit and will be transfer to pillowcase folder desk.Pt wasn't happy about this.Rn gave rationale for not handing out cm number.Dsrg change done to lower abdominal wound.Around 1800,pt called out and requsted for oxygen per nasal canula.Pt o2 sat on room air was 94%. Pt was placed on 1liter nc.Will continue to monitor.
[2020-04-18 21:00] VITALS: BP 123/71
[2020-04-19 02:38] VITALS: BP 95/65
--- NOTE | 2020-04-19 07:41 | NUR ---
PATIENT CHOOSE TO NOT WEAR HIS BIPAP TONIGHT,PLACED PATIENT ON 1-2 L NASAL CANNULA,SEVERAL BM'S THIS SHIFT,ORDER FOR DIALYSIS TODAY.POC CONTINUED.
[2020-04-19 08:21] VITALS: BP 111/63
[2020-04-19 13:00] LABS: HEMATOCRIT 21.7 % (42.0-52.0); MCH 28.3 pg (26.0-34.0); MCHC 32.2 g/dL (28.0-37.0); RBC 2.46 mil/uL (4.50-6.00); RDW 19.5 % (10.5-14.5); WBC 10.8 thou/uL (4.0-11.0)
--- NOTE | 2020-04-19 16:13 | NUR ---
DR. SAM DID PEER TO PEER THIS AM WITH PT'S INSURANCE. THEY AUTHORIZED PT GOING TO 5N ACUTE INPATIENT REHAB. CARE TEAM INDICATED THAT PT IS MEDICALLY STABLE TO DC TO 5N THIS DAY AFTER DIALYSIS. CM CALLED AND NOTIFIED PT. HE IS AWARE AND AGREEABLE. NO OTHER CM INTERVENTION INDICATED. CASE CLOSED.
[2020-04-19 17:45] VITALS: BP 95/65
--- NOTE | 2020-04-19 18:30 | NUR ---
Assumed pt care this am, VS stable right IJ patent and draws blood as well. Was albe to work with PT and walked 10 feet in the room. Had dialysis today but did not complete the total recomended hours 2.5 vs 3.5. POC followed with no signs or verbalizations of distress noted. Report given to [address] [place] [address] pt is to go to room 510, IJ kep in place as per nurse in . Pt is now dc.
== END 2020-04-19 18:29 | DRG 177 ==
LOC: ER 02:11 → ICU 04:26 → 3W 04:26 → EROBS 04:26 → ICU 13:18 → 3W 04-06 20:00 → 4W 04-17 05:34
PROVIDERS: Emergency Medicine; Hospitalist; Internal Medicine Nephrology; Nurse Practitioner Family; Specialist; ADMIT Hospitalist; ATTEND Hospitalist
PROC: 0W9F3ZZ Drainage of Abdominal Wall, Percutaneous Approach (ICD-10-PCS; principal; 2020-04-02)
PROC: XW033E5 Introduction of Remdesivir Anti-infective into Peripheral Vein, Percutaneous Approach, New Technology Group 5 (ICD-10-PCS; principal; 2020-04-02)
PROC: 5A1D70Z Performance of Urinary Filtration, Intermittent, Less than 6 Hours Per Day (ICD-10-PCS; 2020-04-02)
PROC: 30233N1 Transfusion of Nonautologous Red Blood Cells into Peripheral Vein, Percutaneous Approach (ICD-10-PCS; 2020-04-02)
PROC: 5A1D70Z Performance of Urinary Filtration, Intermittent, Less than 6 Hours Per Day (ICD-10-PCS; 2020-04-03)
PROC: 5A1D70Z Performance of Urinary Filtration, Intermittent, Less than 6 Hours Per Day (ICD-10-PCS; 2020-04-07)
PROC: 5A1D70Z Performance of Urinary Filtration, Intermittent, Less than 6 Hours Per Day (ICD-10-PCS; 2020-04-12)
PROC: 5A1D70Z Performance of Urinary Filtration, Intermittent, Less than 6 Hours Per Day (ICD-10-PCS; 2020-04-14)
PROC: 5A1D70Z Performance of Urinary Filtration, Intermittent, Less than 6 Hours Per Day (ICD-10-PCS; 2020-04-16)
PROC: 5A1D70Z Performance of Urinary Filtration, Intermittent, Less than 6 Hours Per Day (ICD-10-PCS; 2020-04-19)
DX: U07.1 COVID-19 (principal); J96.01 Acute respiratory failure with hypoxia; N18.6 End stage renal disease; K65.1 Peritoneal abscess; J12.82 Pneumonia due to coronavirus disease 2019; I48.20 Chronic atrial fibrillation, unspecified; I42.0 Dilated cardiomyopathy; I13.2 Hypertensive heart and chronic kidney disease with heart failure and with stage 5 chronic kidney disease, or end stage renal disease; I50.42 Chronic combined systolic (congestive) and diastolic (congestive) heart failure; N17.9 Acute kidney failure, unspecified; L02.211 Cutaneous abscess of abdominal wall; I42.9 Cardiomyopathy, unspecified; G72.81 Critical illness myopathy; E46 Unspecified protein-calorie malnutrition; K63.2 Fistula of intestine; D64.9 Anemia, unspecified; E78.5 Hyperlipidemia, unspecified; E11.22 Type 2 diabetes mellitus with diabetic chronic kidney disease; D63.1 Anemia in chronic kidney disease; R19.7 Diarrhea, unspecified; K21.9 Gastro-esophageal reflux disease without esophagitis; Z99.2 Dependence on renal dialysis; Z79.4 Long term (current) use of insulin; Z79.891 Long term (current) use of opiate analgesic; Z79.899 Other long term (current) drug therapy; Z91.15 Patient's noncompliance with renal dialysis; Z79.2 Long term (current) use of antibiotics; Z68.27 Body mass index [BMI] 27.0-27.9, adult
CPT/HCPCS: 10047; 10203; 10779; 32100; 85076

== ENCOUNTER 2020-04-19 12:34 | Inpatient (IN) | payer OTHER ==
[~2020-04-19] VITALS: Ht 182.9 cm; Wt 68.0 kg
[~2020-04-19 12:34] MED LIST changes: +ACEROLA C500 MG PO; +ACIDOPHILUS1 EAC4 PO; +CARVEDILOL12.5 MG PO; +ELIQUIS5 MG PO; +FLAGYL500 M1 PO; +HUMALOG100 UNIT/1 SUBQ; +HYDRALAZINE 2525 M1 PO; +HYDROCODON-ACE1 EAC7 PO; +LANTUS SUBQ; +LEVOFLOXACIN750 MG PO; +LISINOPRIL5 MG PO; +LOPERAMIDE 2 MG2 M1 PO; +PACERONE200 MG PO; +PROAIR HFA8.5 GM INH; +PROCRIT10000 UNIT SUBQ; +PROTONIX40 M2 PO; +SENNA8.6 MG PO; +VITAMIN D310 MC4 PO; +VOLTAREN GEL 1100 G1 TOP; +ZINC SULFATE 2220 MG PO; +ZOFRAN 4 MG ORAL4 MG PO; +ZOSYN 2.252.25 GM/51 IV
[2020-04-19 22:11] VITALS: BP 110/65
--- NOTE | 2020-04-20 05:00 | NUR ---
PATIENT TURNED TO SIDE, BUT ONLY TOLERATING LYING ON HIS RIGHT SIDE. PATIENT IS ON DIALYSIS MWF BUT IS ABLE TO VOID APPROX 100 CC AT A TIME, INCONTINENT OF BM WHICH HE STATES HAPPENS ALMOST EVERY TIME HE VOIDS. BLOOD SUGAR WAS 133 AT HS, DRINKING SIPS OF WATER AND DIET [place]. Z-GUARD AND OPTIFOAM TO BUTTOCK OPEN BLISTER. LOW ABDOMEN INCISIONAL WOUND COVERED WITH AQUACEL AG AMD GAUZE TO COVER. PICTURES OF BOTH WOUNDS TAKEN AND PLACED ON CHART. 2 DONNY DRAONS FROM RIGHT ABDOMEN WITH PURULENT DRAINAGE.
[2020-04-20 06:04] LABS: HEMATOCRIT 22.2 % (42.0-52.0); HEMOGLOBIN 7.2 gm/dL (14.0-18.0); MCH 28.7 pg (26.0-34.0); MCHC 32.6 g/dL (28.0-37.0); MCV 88.1 fL (80.0-100.0); RBC 2.52 mil/uL (4.50-6.00); RDW 19.8 % (10.5-14.5); WBC 10.4 thou/uL (4.0-11.0)
[2020-04-20 06:18] LABS: ALBUMIN 1.5 g/dL (3.4-5.0); CALCIUM 7.8 mg/dL (8.5-10.1); CREATININE 2.2 mg/dL (0.7-1.3); TOTAL BILIRUBIN 0.6 mg/dL (0.2-1.0); TOTAL PROTEIN 6.8 g/dL (6.4-8.2)
[2020-04-20 07:20] VITALS: BP 138/78
--- NOTE | 2020-04-20 09:03 | NUR ---
WOUND CARE NOTE; PT KNOWN TO THIS [facility] NURSE FROM STAY ON 3 , ABD DRSG LOOSE, SCANT DARK REDDISH DRAINAGE NOTED, PER PREVIOUS ORDERS DR DESAI, WOUND CLEANSED, AQUACEL AG, 4X4 GUAZE APPLIED, TAPE SECURE, L BUTTOCK WOUND HEALING, ALMOST CLOSED, PT STATES BORDER FOAM DRSG ON BUTTOCKS FEELS BETTER HARPREET WHEN SITTING, DON DIRECTOR CPG PRESENT, Jose AGUARD, BORDER FOAM DRSG REAPPLIED, PT A&O X4, PLEASANT COOPERATIVE, NOTED CONSULT TO DR PULLIAM STAFF AWARE
--- NOTE | 2020-04-20 11:34 | NUR ---
ASSUMED CARE AT 0700. PATIENT IS ALERT AND ORIENTED X4. PATIENT IRWIN'S, PALLIATIVE CARE NURSE ARE EQUAL. LUNGS ARE CLEAR AND DEMINISHED. ABD IS SOFT WITH BSX4. PATIENT HAS [address] ON THE RIGHTSIDE OF HIS ABD. PATIENT VOIDS PER URINAL MARIBEL COLORED URINE. PATIENT HAS RIGHT TESSIO FOR DIALYSIS AND TRIPLE LUMIN IJ. IV SITE WITHOUT REDNESS OR SWELLING. PATIENT CONTINUES ON PO ABT AND IS TOLERATING ABT WITHOUT ADVERSE AFECTS. ABD WOUND DRESSING CHANGED BY WOUND CARE NURSE. TX TO COCCYX TX WITH Z-GUARD. PATIENT IS TURNED Q 2 HOURS. PATIENT IS INCONTINENT OF STOOL WHEN HE VOIDS. UP ON THE SIDE OF THE BED WITH P.T. WILL CONTINUE TO MONITER.
--- NOTE | 2020-04-20 13:17 | NUR ---
team meeting, reccomendation: re team, cont to education on cont therapy.
[2020-04-20 16:09] LABS: FOLIC ACID 4.5 ng/mL (8.6-58.9)
[2020-04-20 19:32] VITALS: BP 103/65
--- NOTE | 2020-04-21 02:27 | NUR ---
FREQUENT REQUESTS AND APPARENTLY NOT SLEEPING AT ALL. LOOSE BM EVERY TIME HE USES URINAL FOR ABOUT 100 CC MARIBEL URINE. PAIN ONLY IN ELBOW, VOLTAREN GEL APPLIED, REFUSES TURNS TO LEFT SIDE, STATING THAT BUTTOCK HURTS ALMOST BAD IT DOES SITTING UP, WITH EACH ENCOUNTER I AM SWITCHING PILLOW FOR WEDGE AND PILLOW SO THAT HE HAS A VARIETY OF ANGLES TO LEAN
[2020-04-21 07:37] VITALS: BP 123/71
--- NOTE | 2020-04-21 08:26 | NUR ---
ASSUMED CARE AT 0700. PATIENT IS ALERT AND ORIENTEDX4. PATIENT IRWIN'S, NETWORK SPECIALIST ARE EQUAL. LUNGS ARE CLEAR AND DEMINISHED. ABD IS SOFT WITH BSX4. PATIENT HAS CHEST INCISION FROM PREVIOUS SURGERY. PATIENT HAS ABD WOUND TO HIS LOWER ABD. PATIENT HAS BILATERAL DONNY DRAINS ON HIS RIGHT ABD. PATIENT IS DIALYSIS PATIENT AND HAS RIGHT TESSIO FOR ACCESS. NO DIALYSIS TODAY TO CHANGE HIS SCED TO T-TH-SAT. PATIENT HAS RIGHT TRIPLE LUMIN IJ ACCESS FOR BLOOD DRAWS AND IV'S. FALL AND SAFETY PROTOCOLS IN PLACE. C/O PAIN IN HIS COCCYX AREA. TX DONE WITH JONH, MSO4 WITH SHIRA. PATIENT IS A TURN Q2 HRS. PATIENT CONTINUES TO PROGRESS VERY SLOWLY TOWARDS D/C GOALS. WILL CONTINUE TO MONITER.
[2020-04-21 19:58] VITALS: BP 111/66
--- NOTE | 2020-04-22 02:41 | NUR ---
assumed care approx 1900 evening 04/21. pt alert and oriented x4. pt voiding per urinal frequent requests to empty small amts. pt with smear to small bm this night, changed pad and cream applied. DONNY drains x2 to abdomen with middle bulb needing compressed frequently in night. pt took hs meds with water tolerating well. pt not sleeping well and order recd for melatonin and dose given to pt. pt requested 02 at 2L per n/c and refuses cpap. bed alarm on and call light in reach. will continue to monitor.
[2020-04-22 08:00] VITALS: BP 112/72
--- NOTE | 2020-04-22 08:02 | NUR ---
ASSUMED CARE AT 0700. PATIENT IS ALERT AND ORIENTED X4. PATIENT IRWIN'S, BEAM DOFFER ARE EQUAL. LUNGS CLEAR AND DEMINISHED WITH AN OCCASIONAL COUGH. PATIENTS ABD INCISION IS DRY AND INTACT. PATIENT HAS RIGHT TESSIO ACCESS FOR DIALYSIS. PATIENT HAS TRIPLE LUMIN I.J. PATIENT HAS TWO DONNY DRAINS N HIS LOWER ABD. PATIENT OCCASIONALLY VOIDS PER URINAL. PLAN FOR DIALYSIS LATER TODAY. PATIENT IS TURN Q 2 HOURS. PATIENT IS A SLIDE BOARD TRANSFER TO W/C AND BSC. FALL AND SAFETY PROTOCOLS IN PLACE. DENIES PAIN AT THIS TIME. CONTINUES TO PROGRESS SLOWLY TOWARDS D/C GOALS. WILL CONTINUE TO MONITER.
--- NOTE | 2020-04-22 18:20 | NUR ---
DR. DESAI NOTIFIED OF RLQ DRAIN NOT HOLDING SUCTION AND NOT DRAINING MUCH. DR. DESAI WILL SEE HIM ON ROUNDS IN A.M. CONTINUE TO MONITER DRAINS
[2020-04-22 19:44] VITALS: BP 106/67
--- NOTE | 2020-04-23 00:30 | NUR ---
PT ALERT AND ORIENTED X 4. RIJ INTACT. RIGHT TESSIO DRESSING C/D/I. 02 ON AT 2L PER NC AT NIGHT PER PT REQUEST SINCE HE REFUSES CPAP. DONNY DRAINS INTACT TO RIGHT ABDOMEN. SMALL AMT PURULENT DRAINAGE NOTED. HYDRALAZINE HELD AT HS PER PARAMETERS. GUAIFFENISIN COUGH SYRUP GIVEN AT HS PER PT REQUEST. NO COUGH NOTED. SILVADENE/ZGUARD TO COCCYX AT HS. PT DENIES PAIN OR DISCOMFORT. MELATONIN GIVEN AT HS PER PT REQUEST FOR SLEEP. PT APPEARS TO BE SLEEPING ON HOURLY ROUNDS. BED ALARM ON FOR SAFETY.
[2020-04-23 06:00] LABS: EOSINOPHILS 3.5 % (0.0-3.0); MONOCYTES 7.2 % (1.0-8.0)
[2020-04-23 06:02] LABS: ABSOLUTE NEUTROPHILS 6.5 thou/uL (1.4-8.2); BASOPHILS 0.8 % (0.0-2.0); LYMPHOCYTES 20.3 % (24.0-44.0); MCHC 32.4 g/dL (28.0-37.0); MCV 89.7 fL (80.0-100.0); PLATELET COUNT 247 thou/uL (150-400); POLYS 68.2 % (36.0-66.0); RBC 2.11 mil/uL (4.50-6.00); RDW 19.7 % (10.5-14.5); WBC 9.6 thou/uL (4.0-11.0)
[2020-04-23 06:09] LABS: HEMATOCRIT 18.9 % (42.0-52.0); HEMOGLOBIN 6.1 gm/dL (14.0-18.0)
[2020-04-23 06:10] LABS: ALBUMIN 1.5 g/dL (3.4-5.0); CALCIUM 7.5 mg/dL (8.5-10.1); MAGNESIUM 1.6 mg/dL (1.8-2.4); PHOSPHORUS 1.6 mg/dL (2.6-4.7); POTASSIUM 3.8 mmol/L (3.5-5.1)
--- NOTE | 2020-04-23 06:35 | NUR ---
HGB 6.1, HCT 18.9 THIS MORNING. DAVY LION NP NOTIFIED WITH ORDERS OBTAINED. ORDERS PUT IN COMPUTER.
[2020-04-23 08:00] VITALS: BP 97/61
[2020-04-23 10:08] VITALS: BP 105/64; BP 106/62; BP 107/60; BP 85/50
--- NOTE | 2020-04-23 12:11 | NUR ---
ASSUMED CARE AT 0700. PT REPORTED HE DID NOT SLEEP WELL AND REQUESTED FOR SOMETHING STRONGER. HAS TAKEN AMBIEN IN THE PAST. PT ALSO REPORTED FOR UNPRODUCTIVE COUGH AND GIVEN TESSALON PERLES AND ROBITUSSIN. SPB90S, AMIODARONE GIVEN AND OTHER BP MEDS HELD AND CHECKED WITH CHONG HEAVY TRUCK TECHNICIAN. DENIES ANY PAIN FOR NOW. HGB 6.1, TYPE AND CROSSMATCH DONE, CONSENT SIGNED, BLOOD TRANSFUSION STARTED AT 1017 WITH VS DONE AND DOCUMENTED. BLOOD CHECKED WITH KAVIN RN/IRRIGATOR. PT HAS NO ADVERSE EFFECT WITH THE FIRST 15 MIN OF BLOOD TRANSFUSION AND RATE INCREASED TO 120ML/HR. THERAPIES HELD FOR NOW. BP IMPROVING. WOUND CARE DONE SCHEDULED. CONT TO MONITOR.
[2020-04-23 20:00] VITALS: BP 105/68
[2020-04-23 20:09] LABS: HEMATOCRIT 22.9 % (42.0-52.0); HEMOGLOBIN 7.3 gm/dL (14.0-18.0)
--- NOTE | 2020-04-24 05:08 | NUR ---
CARE ASSUMED 1900. PT ALERT AND ORIENTED. UNABLE TO SLEEP FOR MOST OF THE NIGHT. VITALS STABLE. NO FEVER. DENIES NAUSEA , OR VOMITING. REFUSED TO USE CPAP OVERNIGHT, PT REPORTS HE IS COMFORTABLE WITH JUST OXYGEN ALONE DURING THE NIGHT. NO OTHER CONCERNS. NO EVENTS OVERNIGHT. PT PROGRESSING TOWARDS GOAL. WILL CONTINUE TO MONITOR.
[2020-04-24 08:00] VITALS: BP 117/70
--- NOTE | 2020-04-24 12:44 | NUR ---
VASCULAR ACCESS NURSE NOTIFIED TO CHANGE CENTRAL LINE DRESSING IT IS DUE TODAY. VAT UNAWARE THIS PATIENT HAD A CENTRAL LINE. DRG CHANGED. THIS PATIENT IS NO LONGER GETTING IV MEDS AND RECOMMEND LINE BE REMOVED IF NO LONGER NECESSARY TO PREVENT CENTRAL LINE BLOOD STREAM INFECTION.
--- NOTE | 2020-04-24 13:41 | NUR ---
ASSUMED CARE AT 0700. SLEPT OFF AND ON. ALERT AND ORIENTATED. REPORTED PAIN IN COCCYX AREA AND MEDICATED WITH ZGUARD/SILVERDENE/MORPHINE WITH GOOD RELIEF. POSITION CHANGED TO ALLEVIATE PRESSURE. PT WAS NOT ABLE TO DO MUCH WITH THERAPY AND COMPLAINED OF FEELING DIZZY WITH SITTING. HYPOTENSIVE WITH MOVEMENT. DR BANKS NOTED, ORDERS MADE WITH CHANGES TO BP MEDS AND PARAMETERS. NOTED DONNY AT RLQ IS NOT SUCTIONING WELL WITH MIN OUTPUT, DR KWONG OFFICE NOTIFIED THE SECOND TIME. WOUND CARE TO LOWER ABDOMEN DONE WITH MIN PURULENT DRAINAGE. APPETITE FAIR. OLIGURIC, NO BM TODAY. FOR HD THIS EVENING AROUND 1800.
[2020-04-24 22:00] VITALS: BP 122/78
--- NOTE | 2020-04-25 02:47 | NUR ---
assumed care approx 1900 evening 04/24. pt receiving dialysis treatment at change of shift. finished approx 0. pt alert and oriented x4, somewhat forgetful. pt took hs meds with water tolerating well. DONNY bulb drains x2 in place, 1 compressed the other not and physician aware and advised he will round today to look at. pt denies complaints. pt appears to be sleeping off and on. bed alarm on and call light in reach. will continue to monitor.
[2020-04-25 08:19] VITALS: BP 131/82
--- NOTE | 2020-04-25 11:14 | NUR ---
ASSUMED CARE AT 0700. PATIENT IS ALERT AND ORIENTED X4. PATIENT IRWIN'S, EVENT CREW TECHNICIAN ARE EQUAL. LUNGS ARE CLEAR AND DEMINISHED. ABD IS SOFT WITH BSX. CONTINUES ON FIBER LAXATIVE PER REQUEST. ABD INCISION OPEN TO AIR. ABD WOUND CHANGED ACCORDING TO PROTOCOL. DONNY DRAINS INTACT. DR. BEAUCHAMP HERE TO SEE PATIENT. PLAN D/C OF TRIPLE LUMIN CATHETER TODAY. PATIENT HAS RIGHT TESSIO FOR DIALYSIS. PATIENT HAS OPEN AREA ON BOTTOM. TX COMPLETED ACCORDING TO PROTOCOL. FALL AND SAFETY PROTOCOLS IN PLACE. C/O PAIN IN HIS BOTTOM, MEDICATED WITH MSO4, SILVADENE CREAM AND Z GUARD. PATIENT REPOSITIONED Q 2 HOURS. PATIENT CONTINUES TO PROGRESS SLOWLY TOWARDS D/C GOALS. WILL CONTINUE TO MONITER.
--- NOTE | 2020-04-25 11:47 | NUR ---
DR. BEAUCHAMP REQUESTED CENTRAL LINE TO BE REMOVED TO PREVENT POSSIBLE INFECTION- RECORDIST TO REMOVE CENTRAL LINE TODAY.
[2020-04-25 20:16] VITALS: BP 121/75
--- NOTE | 2020-04-25 22:24 | NUR ---
1900 CONTINUE PLAN OF CARE. PATIENT CONTINUES TO HAVE BM R/T FIBER LAXATIVE GIVEN PER REQUEST. DONNY DRAIN COVERED BY DRESSING. NPO AFTER MIDNOC. PLAN IR TO REPLACE DONNY DRAIN SOMETIME TOMMARROW. WILL CONTINUE TO MONITER.
--- NOTE | 2020-04-26 | NUR ---
SIP OF WATER NOW, PATIENT UNDERSTANDS THAT HE WILL STAY NPO FOR POSSIBLE IR PROCEDURE SUCH RE-CANNULATION TO A DONNY DRAIN. WILL LET PATIENT KNOW IF IT CAN BE SCHEDULED TODAY, IF NOT HE SHOULD BE ABLE TO EAT. PATIENT UNDERSTANDS AND STATES HE WOULD DEFINITELY NOT WANT TO BE WIDE AWAKE AND APPRECIATES THINKING AHEAD HE WOULD FEEL BETTER IF IT WERE REPLACED. COOPERATIVE WITH TURNS SIDE TO SIDE EVERY 2 HOURS TONIGHT, IN FACT REMINDING US. O2 ON REPLACEMENT FOR CPAP.
[2020-04-26 07:32] LABS: ABSOLUTE NEUTROPHILS 7.8 thou/uL (1.4-8.2); BASOPHILS 0.3 % (0.0-2.0); HEMATOCRIT 24.3 % (42.0-52.0); LYMPHOCYTES 16.6 % (24.0-44.0); MCHC 31.9 g/dL (28.0-37.0); MONOCYTES 7.9 % (1.0-8.0); PLATELET COUNT 306 thou/uL (150-400); POLYS 73.2 % (36.0-66.0); RBC 2.67 mil/uL (4.50-6.00); RDW 18.8 % (10.5-14.5); WBC 10.7 thou/uL (4.0-11.0)
[2020-04-26 07:35] LABS: HEMOGLOBIN 7.7 gm/dL (14.0-18.0)
[2020-04-26 07:48] LABS: ALBUMIN 1.6 g/dL (3.4-5.0); MAGNESIUM 1.7 mg/dL (1.8-2.4); PHOSPHORUS 3.1 mg/dL (2.6-4.7); POTASSIUM 3.8 mmol/L (3.5-5.1)
[2020-04-26 08:00] VITALS: BP 116/74
[2020-04-26 08:49] LABS: ANISOCYTOSIS 2+; HYPOCHROMASIA 2+; PLATELET ESTIMATE NORMAL
--- NOTE | 2020-04-26 11:44 | HC ---
[facility] [place] [address] CONSULTATION Name: STEFANI WHITTEN Room #: 510-P ADM IN M.R.#: [id number] Admission: 04/19/20 Attend Phys: Daljit Navarro MD Discharge: Date of : 51 Report #: [id number] THIS REPORT FOR: cc: Mack Cox MD, Christopher B. MD Stephens, Thad A. MD ~ DATE OF SERVICE: 04/20/2020 WOUND CARE CONSULTATION PERSONAL PHYSICIAN: Christopher Cox MD CHIEF COMPLAINT: Abdominal surgical wound and sacral ulcer. HISTORY OF PRESENT ILLNESS: This is a 64-year-old ____ male who several weeks ago suffered a perforated diverticula, which resulted in a peritoneal abscess. The patient then underwent a partial colectomy with percutaneous Leonard-Marte drain placement. Subsequently, the patient was transferred to a skilled facility where he contracted COVID-19 and was brought to [facility] for treatment of the COVID infection. The patient now has gotten much more stronger. He is now 2-1/2 weeks post initial COVID infection, and the patient has been transferred to our acute rehab for rehabilitation and strengthening. We have been asked to see the patient for evaluation of the abdominal wound as well as a sacral ulcer. The patient denies any other associated ulcers. The patient states that the sacral ulcer, he got in one of the skilled facilities, has been present for several weeks. PAST MEDICAL HISTORY: Significant for recent COVID-19 infection, perforated diverticula with subsequent partial colectomy, history of cardiomyopathy, systolic congestive heart failure, hypertension, hyperlipidemia, diabetes, atrial fibrillation, and gastroesophageal reflux disease. CURRENT MEDICATIONS: Multiple, I reviewed the patient's medication list. DRUG ALLERGIES: None. SOCIAL HISTORY: The patient denies smoking or alcohol use. Currently residing in a rehab care facility prior to this acute rehabilitation. FAMILY HISTORY: Not pertinent to current medical condition. REVIEW OF SYSTEMS: CONSTITUTIONAL: The patient denies fevers or chills. NEUROLOGIC: The patient complains of mild overall weakness, but no isolated weakness in arms or legs. [facility] [address] [place] [address] CONSULTATION Name: STEFANI WHITTEN Room #: 510-P [facility] IN M.R.#: [id number] Admission: 04/19/20 Attend Phys: Daljit Navarro MD Discharge: Date of : 51 Report #: [id number] EYES: No complaints. ENT: No complaints. CARDIAC: The patient denies chest pain, palpitations, or peripheral edema. RESPIRATORY: The patient denies shortness of breath, cough, or wheezes. GASTROINTESTINAL: The patient denies nausea, vomiting, or abdominal pain. GENITOURINARY: The patient denies urgency or frequency. MUSCULOSKELETAL: No complaints. SKIN: There is a nonhealing surgical wound in the midline of the abdomen as well as a stage 3 decubitus ulcer in the sacral region. PHYSICAL EXAMINATION: VITAL SIGNS: Stable. The patient is afebrile. GENERAL: This is an alert and oriented x 3, very pleasant ____ male who is in no obvious distress. HEENT: Normocephalic, atraumatic. Mucous membranes are somewhat dry. Pupils are round. Sclerae white. NECK: Supple, without JVD. LUNGS: Clear. HEART: Regular. ABDOMEN: Obese, soft, nontender. There are [address] as well as a midline incisional nonhealing wound, which is clean and granulating. There is no significant tunneling or undermining. There is no erythema, warmth, or signs of cellulitis. Evaluation of sacral region reveals a stage 3 decubitus ulcer, which is clean and granulating without significant undermining or tunneling. There is minimal serous drainage noted without odor. Periwound is otherwise intact. EXTREMITIES: The patient moves all extremities without difficulty. Bilateral heels are intact. NEUROLOGIC: Cranial nerves 2-12 grossly intact. Motor and sensory grossly intact. LABORATORY DATA: White count 10.4, hemoglobin 7.2, BUN 18, creatinine 2.2. Hemoglobin A1c is 5.1, albumin 1.5. IMPRESSION: 1. Surgical wound in the midline abdomen, status post exploratory laparotomy secondary to intra-abdominal abscess secondary to perforated diverticula. 2. Stage 3 decubitus ulcer, sacrococcygeal and left gluteal region without signs of overt infection. This was present on admission. 3. Chronic kidney disease. 4. Atrial fibrillation. 5. Hypertension. 6. Congestive heart failure. 7. Diabetes mellitus type 2. 8. History of recent COVID-[address] [address] CONSULTATION Name: STEFANI WHITTEN Room #: 510-P ADM IN M.R.#: [id number] Admission: 04/19/20 Attend Phys: Daljit Navarro MD Discharge: Date of : 51 Report #: [id number] 9. Generalized debility. 10. Severe protein-calorie malnutrition, albumin 1.5. PLAN: We will start packing the midline abdominal wound with Aquacel Ag, cover this with the bordered foam changes Sunday, Sunday, and Sunday. We will keep the drain sites clean and monitor them closely for any signs of infection. We will start morphine, Silvadene cream to the gluteal, coccygeal, and sacral ulcer, cover this with bordered foam changes twice daily and p.r.n. We will have the patient on a [id number]-[id number] surface, have him turned every 2 hours and p.r.n. We will make sure we maximize the patient's oral protein supplementation for healing. We will utilize physical and occupational therapy per the acute rehab recommendations. We will continue all other current medicines. We will continue to follow the patient. I appreciate the ability to consult. <ELECTRONICALLY SIGNED> By: Frandy Harrington MD 04/26/20 1144 [id number] Frandy Harrington MD /nt
--- NOTE | 2020-04-26 13:01 | NUR ---
Nutrition: REC daily weights due to concern for further weight loss and hx of prior severe loss. REC folic acid supplementation for deficiency.
--- NOTE | 2020-04-26 14:39 | NUR ---
ASSUMED CARE AT 0700. PATIENT IS ALERT AND ORIENTED X4. PATIENT IRWIN'S, ADULT EDUCATION PROFESSIONAL ARE EQUAL. LUNGS ARE CLEAR AND DEMINISHED. ABD IS SOFT WITH BSX4. PATIENT HAD 1 STOOL INCONTINENCE. CONTINUES TO VOID CONCENTRATED URINE PER URINAL. FALL AND SAFETY PROTOCOLS IN PLACE. DENIES PAIN AT THIS TIME. CONTINUES TO PROGRESS SLOWLY TOWARDS D/C GOALS. DONNY DRAINS CHANGED BY I.R. PATIENT HAS S.L. IN HIS RIGHT F.A. IV SITE IS WITHOUT REDNESS OR SWELLLING. PATIENT HAS RIGHT TESSIO FOR DIALYSIS. PLAN DIALYSIS IN A.M. WOUND CARE DONE TO HIS BOTTOM, AND LOWER ABD. WILL CONTINUE TO MONITER.
[2020-04-26 21:15] VITALS: BP 107/66
--- NOTE | 2020-04-27 03:09 | NUR ---
3 LARGE LOOSE BM SO FAR THIS SHIFT; CLEANED, TURNED TO SIDE, SILVADENE AND Z-GUARD APPLIED TO LEFT BUTTOCK WOUND AND REAR MIDLINE DIRECTLY BELOW SACRUM. PATIENT'S 2 DONNY BULBS ON RIGHT ABDOMEN ARE DRAINING SMALL AMOUNTS. PATINETINT HELPING STAFF KEEP AN EYE ON THEM SO HE DOESN'T ROLL OVER ONTO THEM AND THAT THEY STAY COMPRESSED. VOIDS SMALL AOUNTS AND IS NOW ON THE SUNDAY, SUNDAY, SUNDAY DIALYSIS SCHEDULE.
[2020-04-27 06:43] LABS: ALBUMIN 1.6 g/dL (3.4-5.0); CALCIUM 8.5 mg/dL (8.5-10.1); CREATININE 2.5 mg/dL (0.7-1.3); MAGNESIUM 1.9 mg/dL (1.8-2.4); PHOSPHORUS 3.6 mg/dL (2.5-4.9)
[2020-04-27 07:15] VITALS: BP 111/71
--- NOTE | 2020-04-27 13:33 | NUR ---
team meeting, reccomendation: new order for speech, for carry over. needs assist x 2. re team , cont to working towars dc home, possible might needs w/c.
--- NOTE | 2020-04-27 15:19 | NUR ---
ASSUMED CARE AT 0700 TODAY. PT. ALERT AND ORIENTED X4. IS COOPERATIVE WITH TAKING HIS MEDICATIONS AND ASSESSMENT. HIS LUNGS ARE CTA. HE HAS A RT. CHEST TESSIO FOR DIALYSIS. HE HAD DIALYSIS TIMES 3 HOURS TODAY. HE REMAINS ON FALL AND SAFETY PRECAUTIONS. HE DENIES PAIN. HE HAS TOW FRANCES YOVANI IN PLACE. NEITHER SHOWING MUCH DREAINAGE.
[2020-04-27 20:00] VITALS: BP 120/77
--- NOTE | 2020-04-28 04:22 | NUR ---
Assumed pt care at 1900. A/OX4, VSS. Denied pain on assessment. Pt reported "I didn't have dinner I was downstairs for CT scan" Lunch box provided with good appetite noted. Takes meds whole. C/o insomnia medicated per EMAR with relief noted. Has a Right chest tesio,dialysed yesterday. [address] on Right abd side with small brown drainage noted. Wound care done to coccyx/lower abd w/o any problems noted. RFA IV saline locked. Incontinent of B&B,had a smear medicated with SennaS per request at HS. Resting oxygen in place @ 2L/NC. Fall precauitons in place.
[2020-04-28 08:00] VITALS: BP 125/79
--- NOTE | 2020-04-28 11:16 | NUR ---
ASSUMED CARE AT 0700. PATIENT IS ALERT AND ORIENTED X4. PATIENT IRWIN'S,BUT WEAK. PATIENT IS A SLIDE BOARD TRANSFER. LUNGS ARE CLEAR AND DEMINISHED. ABD IS SOFT WITH BSX4.PATIENT HAS ABD INCISION THAT IS HEALED. PATIENT HAS 2 DONNY DRAINS. DRESSING TO HIS LOWER ABD CHANGED. PATIENT HAS AREA TO HIS BOTTOM THAT CONTINUES TO HEAL. SILVADENE, MSO4, AND Z GUARD APPLIED TO HIS BOTTOM. PATIENT HAS S.L. IN HIS RIGHT F.A. THAT FLUSHS WELL. PATIENT HAS RIGHT TESSIO FOR DIALYSIS. FALL AND SAFETY PROTOCOLS IN PLACE. DENIES PAIN AT THIS TIME. PATIENT CONTINUES TO BE SLIDE BOARD TRANSFER FROM BED TO W/C. P.T. CONTINUES TO WORK ON STAND, PIVOT, TURN PROTOCOLS. WILL CONTINUE TO MONITER.
--- NOTE | 2020-04-28 12:01 | NUR ---
faxed updates to [facility] dialysis location [facility] fax # [phone] and intake center [phone], phone [phone].
[2020-04-28 20:00] VITALS: BP 111/72
--- NOTE | 2020-04-29 04:38 | NUR ---
04-28-20 CARE TRANSFERRED 1899. PT AAOX4, VSS, RR EVEN AND NONLABORED. PT DRESSING CLEAN, DRY AND INTACT; SCANT AMT OF DRAINAGE IN DONNY DRAINS. PT HAS RIGHT FORARM S/L IV DRESSING CLEAN AND DRY. LATER DRESSING CHANGE PER HCP ORDERS IN COCCYX AREA. ZERO S/S OF ACUTE DISTRESS NOTED, PT WILL CONTINUE TO BE MONITOR.
[2020-04-29 09:19] VITALS: BP 136/83
--- NOTE | 2020-04-29 18:40 | NUR ---
PATIENT HAD DIALYSIS TODAY AND TOLERATED WELL. HE IS NOW SLEEPING. HAD A BM THIS PM. ALERT ORIENTED X4. PLEASAN WITH CARES. WILL CONT WITH PLAN OF CARE.
[2020-04-29 20:00] VITALS: BP 117/75
--- NOTE | 2020-04-30 03:29 | NUR ---
LOW AIR LOSS MATTRESS THERAPY CONTINUES, PATIENT REQUESTS REPOSITIONING/TURNING MORE OFTEN THAN EVERY 2 HOURS. SILVADENE AND Z-GUARD TO LEFT BUTTOCK AND LOW CREASE BETWEEN BUTTOCKS, PATIENT REPORTS PAIN RELIEF. TOOK A RARE PAIN MED AT TIME OF SLEEPING PILLS, STATING "BETWEEN THERAPIES AND DIALYSIS, I AM ACHING ALL OVER" DONNY BULBS PATENT AND DRAINING SMALL AMOUNTS. DONNY #1 HAS NEEDED RECHARGING/DEPRESSING TWICE THIS SHIFT TO MAINTAIN SUCTION.
[2020-04-30 07:43] VITALS: BP 115/75
[2020-04-30 08:45] LABS: ABSOLUTE NEUTROPHILS 5.7 thou/uL (1.4-8.2); BASOPHILS 0.6 % (0.0-2.0); EOSINOPHILS 2.9 % (0.0-3.0); HEMATOCRIT 27.2 % (42.0-52.0); HEMOGLOBIN 8.7 gm/dL (14.0-18.0); LYMPHOCYTES 20.2 % (24.0-44.0); MCH 29.2 pg (26.0-34.0); MCHC 32.2 g/dL (28.0-37.0); MCV 90.7 fL (80.0-100.0); MONOCYTES 11.1 % (1.0-8.0); PLATELET COUNT 282 thou/uL (150-400); POLYS 65.2 % (36.0-66.0); RBC 2.99 mil/uL (4.50-6.00); RDW 18.6 % (10.5-14.5); WBC 8.7 thou/uL (4.0-11.0)
--- NOTE | 2020-04-30 08:50 | H ---
[facility] [place] [address] HISTORY AND PHYSICAL Name: STEFANI WHITTEN Room #: 510-P ADM IN M.R.#: [id number] Admission: 04/19/20 Attend Phys: Daljit Navarro MD Discharge: Date of : 51 Report #: [id number] THIS REPORT FOR: cc: Mack Cox MD, Christopher B. MD Smithson,Daljit Sevilla MD ~ DATE OF SERVICE: 04/19/2020 HISTORY AND PHYSICAL/POSTADMISSION PHYSICIAN EVALUATION HISTORY OF PRESENT ILLNESS: The patient is a 64-year-old -[place] male with a complicated history, tested positive for COVID-19 on 04/01/[address] [facility] initially on 04/02/2020. He has been at a assisted facility undergoing therapy is following and acute hospital stay at [facility] for perforated diverticulitis with intra-abdominal abscess and peritoneal abscess, status post exploratory laparotomy with drainage of abscess cyst with lysis of adhesions, 03/05/2020. He had postop complications requiring ventilator support. He also had acute renal insufficiency superimposed on chronic kidney disease, requiring hemodialysis. This most recent admission, he was diagnosed with acute respiratory failure and COVID-19 pneumonia. He has multiple life skills consultant physicians that are involved. He has two DONNY drains in place, abdominal pain slowly improving. He is noted to have critical illness myopathy and has significant generalized weakness and debilitation. He has been admitted for acute in-hospital inpatient rehabilitation. Please see the full history and physical documentation. PAST MEDICAL HISTORY, ALLERGIES, SOCIAL HISTORY, HABITS: Please see the documentation. REVIEW OF SYSTEMS: See the 14-point system. No chest pain, shortness of breath. He has some abdominal discomfort, which is not new. He does have the abdominal drains in place. PHYSICAL EXAMINATION: GENERAL: This is a 64-year-old -[place] male in no obvious distress. VITAL SIGNS: Temperature 98.4, pulse 75, respirations 18, blood pressure 110/65. NEUROLOGIC: He is alert. He follows basic commands, is in no distress. Appears appropriate. HEENT: Facies are symmetric. NECK: No lymphadenopathy. CHEST: Sounded clear to auscultation. CARDIOVASCULAR: Regular rate and rhythm. ABDOMEN: Soft, bowel sounds positive. He does have a DONNY drain in place. [facility] [address] [place] [address] HISTORY AND PHYSICAL Name: STEFANI WHITTEN Room #: 510-P [facility] IN M.R.#: [id number] Admission: 04/19/20 Attend Phys: Daljit Navarro MD Discharge: Date of : 51 Report #: [id number] extremities, 1+ distal edema, no focal calf swelling. Strength of the upper extremities is probably a grade 3+ to 4-/5. Functional range of motion lower extremity strength is 3+ to 4-/5. He has been able to stand with max assist and prior to admission did ambulate a short distance with a front-wheeled walker, mod assist. ASSESSMENT: This is a 64-year-old -[place] male with the following problem list: 1. Critical illness myopathy. 2. COVID-19 pneumonia and respiratory failure. 3. Recent perforated diverticulitis with peritoneal abscess. 4. Lrrsz-kw-nzhddyp anemia, status post transfusion. 5. End-stage renal disease, on hemodialysis. 6. Diabetes mellitus type 2. 7. Cardiomyopathy with decreased ejection fraction. 8. Hypertension. 9. Gastroesophageal reflux disease. 10. History of atrial fibrillation, on anticoagulation. 11. Hypokalemia. PLAN: The patient is admitted for acute in-hospital inpatient rehabilitation. Please see the patient's previous and current functional status. As far as risk of complications, he has the multiple medical comorbidities as noted above. Initial plan of care involves the interdisciplinary acute inpatient rehabilitation program. Measurable functional goals would be for the patient to become modified independent with transfers, mobility, ADLs, so that he can return back to the home setting. Prognosis is reasonably good. Estimated length of stay is probably going to be fairly long, I would say at least 21 days. Potential barriers would include his multiple medical comorbidities and decreased functional status. <ELECTRONICALLY SIGNED> By: Daljit Navarro MD 04/30/20 0850 [id number] 1555 Daljit Navarro MD /[facility]
--- NOTE | 2020-04-30 08:50 | PLAN ---
[facility] [place] [address] REHAB UNIT PLAN OF CARE Name: STEFANI WHITTEN Room #: 510-P ADM IN M.R.#: [id number] Admission: 04/19/20 Attend Phys: Daljit Navarro MD Discharge: Date of : 51 Report #: [id number] THIS REPORT FOR: cc: Mack Cox MD, Christopher B. MD Smithson,Daljit Sevilla MD ~ DATE OF SERVICE: 04/21/2020 PROGRESS NOTE AND OVERALL PLAN OF CARE SUBJECTIVE: The patient is seen back today in followup. He in no distress. Temperature 36.7, pulse 76, respirations 20, blood pressure 123/71. The patient is alert. No calf swelling. Bilateral lower extremity strength is probably a grade 3+ to 4-/5. No distal lower extremity edema. He needs assistance with transfers at a max assist, supine to sit was min assist with use of the bed rail. Rolling right and left is mod assist with use of the bed rail. He was not able to ambulate at all yesterday. Working on core strengthening. In occupational therapy, he is at a max assist for toilet transfers, max assist for bed mobility. Upper body dressing is min assist with lower body dressing, dependent. In OT, he did take some steps toward the bedside commode with max assist and the front-wheeled walker. ASSESSMENT: A 64-year-old male with the following problem list: 1. Critical illness myopathy. 2. COVID-19 pneumonia with respiratory failure. 3. Recent perforated diverticulitis with peritoneal abscess. 4. Acute on chronic anemia, status post transfusion. 5. End-stage renal disease, on hemodialysis. 6. Diabetes mellitus type 2. 7. Cardiomyopathy with decreased ejection fraction. 8. Hypertension. 9. Gastroesophageal reflux disease. 10. History of atrial fibrillation, on anticoagulation. 11. Hypokalemia. PLAN: The overall plan of care is based on the preadmission screen and information garnered from therapy assessments. 1. Estimated length of stay is going to be quite long, I would say at least 21 days. 2. Medical prognosis is reasonably good. 3. Anticipated interventions includes the interdisciplinary acute inpatient rehabilitation program. 4. Anticipated functional outcomes would be for the patient to become modified independent with transfers, mobility, ADLs, so [place] [address] REHAB UNIT PLAN OF CARE Name: MARIA DOLORESSTEFANI D Room #: 510-P [facility] IN ..#: [id number] Admission: 04/19/20 Attend Phys: Daljit Navarro MD Discharge: Date of : 51 Report #: [id number] 5. Discharge destination would be back home with significant other. 6. Expected therapy by discipline includes PT and OT one and 1-1/2 hours per day each five days a week throughout the duration of the acute inpatient rehabilitation stay. ADDENDUM: The patient's prognosis for significant practical improvement within a reasonable period of time appears good. Given the patient's complex medical condition and risk of further medical complication, rehabilitation services could not be safely provided at a lower level of care such as a care home facility. <ELECTRONICALLY SIGNED> By: Daljit Navarro MD 04/30/20 0850 [id number] [id number] Daljit Navarro MD /nt
[2020-04-30 09:04] LABS: ALBUMIN 1.8 g/dL (3.4-5.0); CALCIUM 8.3 mg/dL (8.5-10.1); CREATININE 1.8 mg/dL (0.7-1.3); MAGNESIUM 1.8 mg/dL (1.8-2.4); PHOSPHORUS 2.5 mg/dL (2.6-4.7); POTASSIUM 3.6 mmol/L (3.5-5.1)
[2020-04-30 13:05] LABS: ANISOCYTOSIS 2+; HYPOCHROMASIA 1+; POLYCHROMASIA 1+
[2020-04-30 19:14] VITALS: BP 114/74
--- NOTE | 2020-04-30 19:24 | NUR ---
Pt was incontinent of bowel x2 today. pt was able to let nursing know after he had bm. pt states he has no control of it to be able to hold it.
[2020-05-01 02:06] LABS: HEP B SURFACE Ab(ANTI-HBS Reactive (()); HEPATITIS B SURFACE AG Negative (Negative)
--- NOTE | 2020-05-01 02:34 | NUR ---
PATIENT ENCOURAGED TO REACH FOR ITEMS AND HAS HAD SOME SUCESS WITH BACKSCRATCHER, MENU, WATER, URINAL, AND CALL LIGHT. SILVADENE MORPHINE ZGUARD MIXTURE APPLIED TO LEFT BUTTOCK AND MID COCCYX WOUNDS. TURNED TO SIDE WITH ASSIST, LOW AIR LOSS MATTRESS THERAPY CONTINUES
[2020-05-01 08:00] VITALS: BP 130/81
--- NOTE | 2020-05-01 19:44 | NUR ---
Assumed pt care at 0700. pt was alert and oriented x4. pt was calm and co-operative. silvadene morphine zguard mixture applied to left buttocks and mid coccyx wounds. pt was encourage to reach for his urinal, menu, and water. pt calls to be repositioned every two hours. pt worked with therapy. pt had dialysis, BP after dialysis was 118/78, P 72, two liter off. WILL CONTINUE TO MONITOR
[2020-05-01 20:00] VITALS: BP 87/48
[2020-05-01 20:33] VITALS: BP 107/64
[2020-05-01 22:47] VITALS: BP 102/64
--- NOTE | 2020-05-02 00:03 | NUR ---
PT PROGRESSING TOWARDS D/C GOALS. ALERT AND ORIENTED X4. BP MODERATELY LOW AT START OF SHIFT AFTER DIALYSIS. PT DRANK 2 APPLE JUICES AND 1/2 ENSURE. BP BETTER NOW. SEE VS. SLEEPING MEDS GIVEN REQUESTED. WOUND CARE COMPLETED ORDERED TO JPS AND COCCYX/ BUTTOCKS. NO S/S DISTRESS PRESENTLY. LUNGS UNLABORED ON 1LNC. WILL CONTINUE TO MONITOR PT FOR CHANGES.
[2020-05-02 07:15] VITALS: BP 115/68
--- NOTE | 2020-05-02 17:55 | NUR ---
ASSSUMED PATIENT CARE AT 0700. A/O X4. WOUND CARE PER ORDER. SLOWLY TOWARDS POC GOALS.
[2020-05-02 19:42] VITALS: BP 130/80
--- NOTE | 2020-05-03 02:15 | NUR ---
TURNED FREQUENTLY TO RIGHT SIDE. SILVADENE MS Z-GUARD MIXTURE APPLIED TO LEFT BUTTOCK SMALL [place] WOUND AND MIDLINE LOW BUTTOCK STRAIGHT LINE WOUND. LOW AIR LOSS MATTRESS THERAPY CONTINUES. USING URINAL FOR SMALL MARIBEL VOIDS, HEMODIALYSIS CONTINUES EVERY Sunday. 2 RIGHT SIDE DRAINS TO JPs INTACT WITH SMALL AMOUNTS THICK DRAINAGE. MIDLINE ABDOMEN AUQUACEL AG COVERED WITH OPTIFOAM BORDER DRY FOR 4 DAYS NOW. PATIENT HAS HAD 4 BOWEL MOVEMENTS SO FAR THIS SHIFT, CALLS IMMEDIATELY AFTER EACH ONE AND WOULD LIKE A LAXATIVE SO THAT HE WOULD NOT HAVE TO PUSH TO HAVE BM. TAKING PILLS AT HS INCLUDING SLEEPING PILLS AND HAS BEEN SLEEPING A LITTLE MORE THAN HE USUALLY DOES AT NIGHT. TAKING JUST A FEW SIPS OF WATER TONIGHT
[2020-05-03 07:15] VITALS: BP 121/78
--- NOTE | 2020-05-03 09:26 | NUR ---
ASSUMED CARE AT 0700. PATIENT IS ALERT AND ORIENTED X4. PATIENT IRWIN'S, PREPARER MAKING DEPARTMENT ARE EQUAL. ABD IS SOFT WITH BSX4. PATIENT HAS RIGHT TESSIO FOR DIALYSIS. PLAN DIALYSIS IN A.M. PATIENT HAS ABD INCISION THAT HAS HEALED. PATIENT HAS [address] BOTH ARE DRAINING SMALL AMOUNTS OF SECRETIONS. PATIENT STILL VOIDS SMALL AMOUNTS OF DARK YELLOW URINE. PATIENT IS TURNED Q 2 HOURS. SORE ON HIS BOTTOM CONTINUES TO HEAL. PATIENT IS SLIDE BOARD TRANSFER AND STAND PIVOT SIT FROM BED TO W/C. FALL AND SAFETY PROTOCOLS IN PLACE. DENIES PAIN AT THIS TIME. CONTINUES TO PROGESS SLOWLY TOWARDS D.C. GOALS. WILL CONTINUE TO MONITER.
[2020-05-03 19:53] VITALS: BP 97/61
--- NOTE | 2020-05-04 00:55 | NUR ---
ASSESSED AT START OF SHIFT. PT A&OX4. C/O OF HAVING MULTIPLE BM. PER REPORT PT HAD 6 BM DURING THE DAY. PT HAD ANOTHER BM AT START OF SHIFT. IMODIUM GIVEN. HYDROCODONE ALSO GIVEN FOR BACK PAIN. PT REPOSITIONED FOR COMFORT. ON 2L OF O2 AT HS. DONNY DRAINS INTACT WITH MINIMAL DRAINAGE. DRESSING C/D/I. ZYGUARD AND MORPHINE CREAM APPLIED ON BUTOUCK. FALL PREC IN PLACE AND CALL LIGHT AT REACH. URINAL AT BEDSIDE. WILL CONT TO MONITOR.
[2020-05-04 07:12] LABS: ABSOLUTE NEUTROPHILS 6.7 thou/uL (1.4-8.2); BASOPHILS 0.4 % (0.0-2.0); EOSINOPHILS 1.9 % (0.0-3.0); HEMATOCRIT 27.4 % (42.0-52.0); HEMOGLOBIN 8.7 gm/dL (14.0-18.0); LYMPHOCYTES 18.1 % (24.0-44.0); MCHC 31.8 g/dL (28.0-37.0); MONOCYTES 11.6 % (1.0-8.0); PLATELET COUNT 247 thou/uL (150-400); RBC 3.01 mil/uL (4.50-6.00); RDW 17.4 % (10.5-14.5); WBC 9.8 thou/uL (4.0-11.0)
[2020-05-04 07:18] LABS: CALCIUM 8.9 mg/dL (8.5-10.1); CREATININE 2.5 mg/dL (0.7-1.3); MAGNESIUM 1.8 mg/dL (1.8-2.4); POTASSIUM 3.8 mmol/L (3.5-5.1)
[2020-05-04 08:00] VITALS: BP 108/62
--- NOTE | 2020-05-04 09:46 | NUR ---
ASSUMED CARE AT 0700 THIS MORNING. PT. IRRITABLE WHEN THIS RN WAS IN THE ROOM C/O "I NEVER GET TO EAT IN [place], THERE ARE ALWAYS MEDICATIONS GIVEN THEN". THIS RN EXPLAINED TO HIM THAT MANY TIMES THE MEDS ARE GIVEN A MEAL TIME TO NOT UPSET ONES STOMACH. PT. DID NOT REMARK AFTER THAT. HE TOOK HIS MEDICATIONS WITHOUT PROBLEMS NOTED. CREAM APPLIED TO HIS COCCYX. FRANCES PRAT TIMES 2 TO RUQ AND RLQ SHOWING VERY LITTLE DRAINAGE.
--- NOTE | 2020-05-04 09:57 | NUR ---
FAXED CLINICAL UPDATES TO [facility]. CONFIRMED WITH [facility] THEY RECEIVED. [facility] P [phone]; FAX [phone]
--- NOTE | 2020-05-04 13:11 | NUR ---
team meeting, having loose bm with negative c-diff. mod cog and memory. 0 step getting into home, can stay on main level but if goes to bedroom 12steps. had to do slide board off bsc today. max for transfer. can he go home at wheel chair? can sig other help and take off work? Re team with consider 09/10 assistance or skilled at end of next weeke. anticipate dc 05/21/20.
[2020-05-04 19:06] VITALS: BP 86/57
[2020-05-04 19:43] VITALS: BP 82/54
--- NOTE | 2020-05-05 00:32 | NUR ---
ASSUMED CARE ON 05/04/20 @ 1900, IN BED, AWAKE ALERT AND ORIENTED X3-4. HRRR, LUNGS CTA BILAT, ABD N X4Q. J DRAINS EMPTIED, SMALL AMOUNT OF MILKY ALMOND COLOR DRAINAGE. 50CC OF DARK URINE VOIDED. NEW ORDER FOR LEVOFLOXACIN ON 05/06/20 @ 11:00 ONE TIME DOSE. SILVER SULFADIAZINE/MORPHINE SULFATE APPLIED TO LEFT BUTTOCKS ORDERED. SLEEPING AT THIS WRITING, WILL CONTINUE TO MONITOR FOR SAFETY AND COMFORT PER UNIT PROTOCOL.
[2020-05-05 08:00] VITALS: BP 123/66
--- NOTE | 2020-05-05 10:00 | NUR ---
ASSUMED CARE AT 0700. SLEPT FAIRLY WELL. ALERT AND ORIENTATED. REPORTED SORENESS AROUND THE LOWER ABD AREA. TYELNOL GIVEN WITH GOOD RELIEF. PT CONTRIBUTES PAIN TO THERAPY. PT IS STILL NOT ABLE TO PROGRESS MUCH WITH THERAPY AND NEEDS ASSISTANCE WITH GETTING UP AND OOB. WOUND CARE TO ABD DONE AND HEALING WELL. DONNY DRAIN INTACT WITH MIN DRAINAGE. TOLERATED ALL MEDS WITH H20. PLAN FOR DIALYSIS TOMORROW. VOIDING BUT IS OLIGURIC. NO BM SINCE YESTERDAY.
[2020-05-05 20:00] VITALS: BP 118/77
--- NOTE | 2020-05-06 03:46 | NUR ---
MOISTURE BARRIER TO BUTTOCKS INCLUDING SMALL OPEN AREA LEFT BUTTOCK AND LOW MID-BUTTOCKS. PATIENT IS COUGHING MORE TONIGHT AND HAS BETTER APPETITE THAN USUAL, EATING A SERVING OF ICE CREAM AND LEMON-NIKOLSKI SODA, STATES APPETITIE FOR CHAOCOLATE IF WE HAVE ANY. JPs PATENT WITH SCANT DRAINAGE. FRONT MIDLINE INCISION IS DRY, INTACT, HEALED. USING URINAL FOR DARK MARIBEL 75 CC AT A TIME. PLANS DIALYSIS AFTER THERAPIES. TURNING TO RIGHT SIDE AND TO BACK WITH MIN ASSIST NEEDED AND ASKED FOR.
[2020-05-06 08:00] VITALS: BP 130/81
--- NOTE | 2020-05-06 11:51 | NUR ---
Would recommend initiatiing an appetite stimulant and would consider liberalizing diet in effort to optimize PO intakes while in acute setting. If PO intakes continue to be <50% with ongoing wt loss, pt may benefit from non-oral supplemental nutrition.
--- NOTE | 2020-05-06 16:07 | NUR ---
PATIEN APPEARS WEAK, TIRED BUT NOT IN PAIN. HE IS CURRENTLY SLEEPING.CONT ON BOWEL AND BLADDER. WILL CONT TO MONITOR AND ASSIST NEEDED.
--- NOTE | 2020-05-06 16:47 | NUR ---
FAXED HEPATITIS SURFACE ANTIGEN RESULTS TO [facility] SPOKE WITH CAILIN AT [facility] SHE RECEIVED RESULT.
[2020-05-06 21:55] VITALS: BP 128/84
--- NOTE | 2020-05-07 02:44 | NUR ---
assumed care approx 1900 evening 05/06. pt receiving dialysis treatment at change of shift until approx 2200. pt alert and oriented x4 calling out frequently in the night for help with covers, fix temperature in room, empty trash. pt forgetful. pt took hs meds with water tolerating well. pt voiding per urinal. pt has been awake majority of night so far. bed alarm on and call light in reach. will continue to monitor.
[2020-05-07 05:28] LABS: ABSOLUTE NEUTROPHILS 7.7 thou/uL (1.4-8.2); BASOPHILS 0.2 % (0.0-2.0); HEMATOCRIT 28.4 % (42.0-52.0); HEMOGLOBIN 9.1 gm/dL (14.0-18.0); LYMPHOCYTES 14.1 % (24.0-44.0); MCHC 31.9 g/dL (28.0-37.0); MCV 90.7 fL (80.0-100.0); MONOCYTES 5.5 % (1.0-8.0); PLATELET COUNT 223 thou/uL (150-400); POLYS 80.2 % (36.0-66.0); RBC 3.12 mil/uL (4.50-6.00); RDW 17.7 % (10.5-14.5); WBC 9.6 thou/uL (4.0-11.0)
[2020-05-07 05:41] LABS: CALCIUM 8.4 mg/dL (8.5-10.1); CREATININE 1.6 mg/dL (0.7-1.3); MAGNESIUM 1.8 mg/dL (1.8-2.4); POTASSIUM 4.2 mmol/L (3.5-5.1); URIC ACID* 2.7 mg/dL (3.5-7.2)
[2020-05-07 07:15] VITALS: BP 129/84
--- NOTE | 2020-05-07 09:23 | NUR ---
ASSUMED CARE AT 0700. PATIENT IS ALERT AND ORIENTED X4. PAIENT IRWIN'S, ARMATURE WINDER ARE EQUAL. LUNGS ARE CLEAR AND DEMINISHED. ABD IS SOFT WITH BSX4. DONNY DRAINS INTACT WITH A SMALL AMOUNT OF PURULENT DRAINAGE IN BOTH DRAINS. THE PATIENT HAS RIGHT CHEST TESSIO. PATIENT HAS S.L. IN HIS RIGHT FORARM. PLAN IS TO D/C S.L. R/T NON-USE. DRESSSING TO LOWER ABD IS DRY AND INTACT. UP TO W/C PER SLIDING BOARD TO THE W/C. PATIENT CONTINUES TO USE WALKER WHEN UP WITH P.T. PLAN FOR SHOWER TODAY WITH O.T. FALL AND SAFETY PROTOCOLS IN PLACE. DENIES PAIN AT THIS TIME. CONTINUES TO PROGRESS TOWARDS D/C GOALS. WILL CONTINUE TO MONITER.
[2020-05-07 19:29] VITALS: BP 117/71
--- NOTE | 2020-05-08 01:34 | NUR ---
assumed care approx 1900 evening 05/07. pt lying in bed with head of bed elevated at change of shift. pt with flat affect appears somewhat depressed. pt voiding per urinal. pt took hs meds with water tolerating well. bed alarm on and call light in reach. will continue to monitor.
[2020-05-08 07:30] VITALS: BP 141/82
--- NOTE | 2020-05-08 07:56 | NUR ---
ASSUMED CARE AT 0700. PATIENT IS ALERT AND ORIENTED, BUT SLEEPY TODAY. PATIENT WAS STARTED ON BENADRYL FOR SLEEP. PATIENT IRWIN'S, MANAGER WATER ARE EQUAL. LUNGS ARE CLEAR. ABD IS SOFT WITH BSX4. PATIENT IS INCONTINENT OF STOOL. PATIENT VOIDS SMALL AMOUNTS OF CONCENTRATED URINE. DONNY DRAINS INTACT, AND CONTINUE TO DRAIN SMALL AMOUNTS OF PURULENT DRAINAGE. ABD INCISION IS HEALED. PATIENT HAS RIGHT TESSIO FOR DIALYSIS TODAY. PATIENT CONTINUES TO BE TURNED Q 2 HOURS. FALL AND SAFETY PROTOCOLS IN PLACE. DENIES PAIN AT THIS TIME. CONTINUES TO PROGRESS SLOWLY TOWARDS D/C GOALS. WILL CONTINUE TO MONITER.
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
[2020-05-08 19:05] VITALS: BP 120/75
--- NOTE | 2020-05-09 02:20 | NUR ---
TO SIDE WHEN WILLING, LOW AIR LOSS MATTRESS THERAPY CONTINUES. SMALL AMOUNT VOIDS OF DARK MARIBEL URINE. DONNY BULBS SUCTION PATENT FOR SMALL AMOUNT PONCE PURUKLENT DRAINAGE. DEBROX TO EARS BILATERALLY AT HS, PATIENT STATES HE IS HEARING IMPAIRED AND DOES NOT UNDERSTAND WHY. OCCASSIONAL COUGH. RIGHT TESSIO CATHETER IN PLACE IS DRY AND INTACT.
[2020-05-09 08:00] VITALS: BP 140/87
--- NOTE | 2020-05-09 12:04 | NUR ---
PT ALERT AND ORIENTED TIMES FOUR. VSS. PT DENIES PAIN/SOA. PT TOLERATES MEDS AND MEALS. PT WORKED WELL WITH PT TODAY. PT PROGRESSING TOWRADS POC GOALS.
[2020-05-09 16:44] VITALS: BP 136/84
[2020-05-09 19:07] VITALS: BP 139/94
--- NOTE | 2020-05-10 02:06 | NUR ---
REQUESTING OXYGEN AT HS INSTEAD OF CPAP. LOW AIR LOSS MATTRESS THERAPY CONTINUES, REFUSING TURNS, DEBROX FOR HIS EARS WHICH HE ADMITS ARE BARELY DOING ANY BETTER. ATE ICE CREAM AFTER MIDNIGHT. DONNY BULB SUCTION DRAINS REMAIN PATENT WITH SMALL AMOUNTS OF PURULENT DRAINAGE, HE IS CAREFUL WITH THEM WHEN HE DOES TURN. VOIDING SMALL AMOUNTS PER URINAL AND HAS BRIEF SPELLS OF FEELING WARM OR COLD.
[2020-05-10 11:12] VITALS: BP 148/103; BP 148/99
--- NOTE | 2020-05-10 14:56 | NUR ---
ASSUMED CARE AT 0700 THIS MORNING. PT. IN HIS BED FOR BREAKFAST. HE DRANK HIS PROTEIN SHAKE FOR BREAKFAST AND LUNCH, BUT DID NOT EAT ANY OF THE SOLID FOOD. HE CONTINUES TO STATE HE IS NOT HUNGRY. HE WORKED WITH THERAPIES THIS MORNING. HE WANTED TO RETURN TO BED AFTER THERAPIES. HE WANTED TO RETURN TO BED AND DID NOT WAIT FOR ASSISTANCE AND PUT HIMSELF TO BED. HE WAS WARNED ABOUT DOING THIS WITHOUT HELP. HE WAS COOPERATIVE WITH TAKING HIS MEDICATIONS AND WITH HIS ASSESSMENT. NO NEW PROBLEMS NOTED OR VOICED TODAY.
[2020-05-10 19:14] VITALS: BP 126/86
--- NOTE | 2020-05-11 01:31 | NUR ---
assumed care approx 1900 evening 05/10. pt in good spirits this night and seems to be less depressed stating he feels he is making better progress. pt voiding per urinal. pt took hs meds with water tolerating well. pt appears to be dozing off and on. bed alarm on and call light in reach. will continue to monitor.
[2020-05-11 05:30] LABS: ABSOLUTE NEUTROPHILS 11.9 thou/uL (1.4-8.2); BASOPHILS 0.4 % (0.0-2.0); EOSINOPHILS 0.3 % (0.0-3.0); HEMATOCRIT 29.5 % (42.0-52.0); HEMOGLOBIN 9.3 gm/dL (14.0-18.0); MCH 28.8 pg (26.0-34.0); MCHC 31.6 g/dL (28.0-37.0); MCV 91.1 fL (80.0-100.0); MONOCYTES 7.2 % (1.0-8.0); PLATELET COUNT 221 thou/uL (150-400); POLYS 80.1 % (36.0-66.0); RBC 3.24 mil/uL (4.50-6.00); RDW 16.8 % (10.5-14.5); WBC 14.9 thou/uL (4.0-11.0)
[2020-05-11 05:57] LABS: CALCIUM 8.8 mg/dL (8.5-10.1); CREATININE 2.3 mg/dL (0.7-1.3); MAGNESIUM 1.8 mg/dL (1.8-2.4); POTASSIUM 4.2 mmol/L (3.5-5.1)
--- NOTE | 2020-05-11 07:31 | NUR ---
ASSUMED CARE AT 0700. PATIENT IS ALERT AND ORIENTED X4. PATIENT IRWIN'S, TWO NEEDLE MACHINE OPERATOR ARE EQUAL. LUNGS ARE CLEAR. ABD IS SOFT WITH BSX4. ABD INCISIOIN IS DRY AND INTACT. DONNY DRAINS COMPRESSED AND DRAINING PURULENT DRAINAGE. PATIENT IS A DIALYSIS PATIENT. PATIENT HAS RIGHT TESSIO ACCESS FOR DIALYSIS. PLAN FOR DIALYSIS TODAY. PATIENT IS UP WITH MAX ASSIST OF 2 STAFF TO BSC OR WITH SLIDE BOARD. FALL AND SAFETY PROTOCOLS IN PLACE. DENIES PAIN AT THIS TIME. CONTINUES TO PROGRESS SLOWLY TOWARDS D/C GOALS. WILL CONTINUE TO MONITER.
[2020-05-11 07:51] VITALS: BP 134/83
--- NOTE | 2020-05-11 12:52 | NUR ---
team meeting, reccomendation working more with therapy. will requir po abx for while, and drains. cont with dialysis. sig other to come in and work with therapy, he has made some assistance, not max assistance, more on the mod - min. hold off and family working with therapy to see if have any skilled day, dc 05/21.
[2020-05-11 13:41] VITALS: BP 120/77
[2020-05-11 19:05] VITALS: BP 121/82
--- NOTE | 2020-05-12 03:20 | NUR ---
KAMALJIT PER REQUEST AT , STATING I HAVE NOT HAD A BM FOR A FEW DAYS, ONLY TAKING ONE OF 2 FOR NOW HE HAS HAD A HISTORY OF FREQUENT STOOLS. BOTH DONNY DRAINS PATENT FOR SMALL AMOUNTS OF PURULENT DRAINAGE. LOW AIR LOSS MATTRESS THERAPY CONTINUES. DENIES PAIN, APPRECIATES BENADRYL TO HELP SLEEP. MOISTURE BARRIER TO BUTTOCKS
[2020-05-12 07:34] VITALS: BP 135/91
--- NOTE | 2020-05-12 10:21 | NUR ---
ASSUMED CARE AT 0700. PATIENT IS ALERT AND ORIENTED X4. PATIENT IRWIN'S, HEALTH OUTREACH WORKER ARE EQUAL. LUNGS ARE CLEAR. ABD IS SOFT WITH BSX4. ABD INCISION IS DRY AND INTACT. DONNY DRAINS CONTINUE TO DRAIN PURULENT DRAINAGE. PATIENT CONTINUES ON ORAL ABT'S. UP TO W/C WITH P.T. MAX ASSIST SPT/SIT, OR WITH SLIDE BOARD. PATIENT HAS RIGHT TESSIO FOR DIALYSIS. PATIENT CONTINUES TO HAVE POOR APPETITE,BUT IS CONSUMING SUPPLEMENT. PATIENT IS ENCOURAGED TO TURN HIMSELF. FALL AND SAFETY PROTOCOLS IN PLACE. DENIES PAIN. CONTINUES TO PRDOGRESS SLOWLY TOWARDS D/C GOALS. WILL CONTINUE TO MONITER.
[2020-05-12 20:00] VITALS: BP 113/79
--- NOTE | 2020-05-13 01:57 | NUR ---
ASSESSMENT: PT REMAIN ALERT AND ORIENT TIMES FOUR. DENIE PAIN, SOB AND N/V. PT EXPRESSED EXCITEMENT ABOUT BEING ABLE TO FINALLY GO HOME ON THE May. VSS, AFEBRILE. USING URINAL APPROPRIATELY. ABD INCISION WELL HEALED. DONNY DRAINS INTACT WITH PURULENT DRAINAGE. RIGHT CHEST TESSIO INTACT, NO BLEEDING. BUTTOM WITH BARRIER CREAM, IN HEALING STAGE. SLOW AND GOOD PROGRESS TOWARDS DC GOALS, WILL CONTINUE TO MONITOR.
[2020-05-13 07:30] VITALS: BP 130/80
[2020-05-13 07:45] VITALS: BP 130/80
--- NOTE | 2020-05-13 09:00 | NUR ---
david visited with ot and passed on that therapy will need to call [facility] to set up training sooner than later so she can give work notice to need off work, and address any question from [employer] on equip he might need in house that insurance does not cover. will need wheel chair order as well to set up wc for dc on 05/21/20.
--- NOTE | 2020-05-13 10:30 | NUR ---
PT CARE ASSUMED AT 0700. ASSESSMENTS CHARTED. MEDICATIONS CHARTED. PT REFUSED EAR DROPS. PT APPETITE IS POOR; CONSUMED ORANGE JUICE, ENSURE, TOOK A FEW BITES. PT IN GOOD MOOD AND TALKATIVE. PT TOOK PILLS WHOLE WITH WATER.
[2020-05-13 11:45] VITALS: BP 128/66
[2020-05-13 15:45] VITALS: BP 136/71
[2020-05-13 20:00] VITALS: BP 84/52
--- NOTE | 2020-05-14 05:49 | NUR ---
PT MAKING SLOW PROGRESS TOWARDS GOALS. PT AWARE OF POOR APPETITE. PT GIVEN FOOD BROUGHT FROM HOME WHICH WAS SPAGHETTI. SMELL-MED SIZE BIN, TO WHICH PT ATE 50% OF THE CONTENTS. "I'M TRYING TO GET MY NUTRITION UP." O2 AT 2L PER NC PLACED WHEN HE TO SLEEP IN PLACE OF CPAP. PT STATED THAT THE HOSPITAL MASK JUST DIDN'T FIT RIGHT AND THAT HIS MASK FROM HOME HAD DETERIORATED TO THE POINT IT WAS INEFFECTIVE.
[2020-05-14 08:00] VITALS: BP 126/74
--- NOTE | 2020-05-14 11:12 | NUR ---
ASSESSED AT START OF SHIFT. MORNING MEDS GIVEN. PT MARSHAL THERAPY WELL. DONNY DRAIN EMPTIED 10CC OUT OF LOWER TUBE. DRESSING C/D/I. REPORT GIVEN TO RN TO CONT CARE.
--- NOTE | 2020-05-14 16:45 | NUR ---
PT TOLERATED THERAPIES WITHOUT DIFFICULTY, AND HAD NO CONCERNS TODAY. NOTED THAT DRAINS ARE PATENT WITH MINIMAL AMOUNT OUT AT THIS TIME. PT ASKED IF THE PLAN WAS TO HAVE SURGERY IN THE FUTURE FOR THE ABCESS, AND RN ENCOURAGED HIM TO DISCUSS THIS WITH THE MD IN ROUNDS.
[2020-05-14 19:25] VITALS: BP 92/57
--- NOTE | 2020-05-14 20:08 | NUR ---
DONNY DRAINS: LOWER DRAIN OUTPUT FROM [id number] WAS 3 CC. UPPER DRAIN OUTPUT WAS 7CC, BOTH WERE OF THICK, PURULENT RED/BROWN TINGED DRAINAGE WITH MINIMAL ODOR. INSERTION SITE ARE INTACT WITHOUT ISSUE. PT ASKED WHERE THE DRAINS "GO" IN HIS BELLY, AND REVIEWED PHOTO OF IMAGING TO SHOW WHERE THEY ARE. PT ASKED WHAT THE PLAN IS TO "FIX IT," WHETHER SURGICALLY OR WHATEVER, AND "WHO WILL FIX IT?" HE VERBALIZED DISSATISFACTION WITH THE PREVIOUS HOSPITAL, AND STATED A DESIRE FOR THE [facility] SURGEONS TO EVALUATE AND TREAT MOVING FORWARD, BUT DISCUSSED THAT THIS IS SOMETHING THAT HE WOULD NEED TO VERBALIZE TO HIS PRIMARY MD AND MEDICAL TEAM TO DETERMINE WHAT THE BEST COURSE OF ACTION IS. NOTE WAS PLACED ON THE WHITE BOARD TO REMIND PT TO ASK THIS OF THE MD ON ROUNDS IN THE MORNING, AND NM TO FOLLOW UP REGARDING THIS ON SUNDAY WELL TO MAKE SURE THAT THE PATIENT FEELS PREPARED FOR THE FUTURE PLANS. PT ALSO ASKED ABOUT DC PLAN FOR TRANSPORT TO AND FROM , AND SAID THAT HIS S.O. COULD TAKE HIM LONG HE COULD GET IN AND OUT OF THE CAR, BUT HE IS CONCERNED THAT HE MAY NOT BE ABLE TO DO IT. ENCOURAGED PT THAT HE IS MAKING SIGNIFICANT PROGRESS AND TO CONTINUE TO WRK HARD WITH THERAPIES, HE IS MAKING IMPROVEMENTS DAILY. HE AGREED TO CONTINUE TO DO HIS VERY BEST, AND WAS OPTIMISTIC ABOUT POSSIBLY GOING HOME.
[2020-05-15 07:45] VITALS: BP 134/87
--- NOTE | 2020-05-15 10:55 | NUR ---
ASSUMED CARE AT 0700. ALERT AND ORIENTATED. SLEPT FAIRLY WELL. DENIES ANY PAIN. PT IS CONCERNED ABOUT HIS DC PLANNING AND DONNY DRAINS. SPOKE TO [place] TO DC HOME WITH HIS DRAINS AND TO F/UP WITH SURGEON AT [facility] REGARDING DONNY REMOVAL AND PLAN OF CARE. RUQ DONNY DRAIN INTACT WITH 15ML PURULENT DRAINAGE AND RLQ DONNY DRAIN WITH MIN DRAINAGE. PT IS AFEBRILE. WBC IS SLIGHTLY ELEVATED. APPETITE IS STILL POOR, DRANK 100% OF SUPPLEMENT. PARTICIPATING WITH THERAPY. OLIGURIC, VOIDS AT TIMES. PLAN FOR HD TODAY.
[2020-05-15 11:22] LABS: HEMATOCRIT 34.8 % (42.0-52.0); HEMOGLOBIN 10.9 gm/dL (14.0-18.0); MCH 28.8 pg (26.0-34.0); MCHC 31.4 g/dL (28.0-37.0); MCV 91.7 fL (80.0-100.0); RBC 3.79 mil/uL (4.50-6.00); RDW 16.6 % (10.5-14.5)
[2020-05-15 11:27] LABS: CALCIUM 9.3 mg/dL (8.5-10.1); CREATININE 2.7 mg/dL (0.7-1.3); POTASSIUM 4.1 mmol/L (3.5-5.1)
[2020-05-15 20:00] VITALS: BP 103/68
--- NOTE | 2020-05-16 02:17 | NUR ---
assumed care approx 1900 evening 05/15. pt lying in bed with head of bed elevated. pt alert and oriented x4, appropriate and cooperative. pt voiding per urinal. DONNY drains x2 intact. 02 at 2l per n/c. pt appears to be sleeping off and on. bed alarm on and call light in reach. will continue to monitor.
[2020-05-16 07:42] VITALS: BP 123/79
--- NOTE | 2020-05-16 10:52 | NUR ---
ASSUMED CARE AT 0700. PATIENT IS ALERT AND ORIENTEDX4. PATIENT IRWIN'S, PLANT CONTROLLER ARE EQUAL. LUNGS ARE CLEAR. ABD IS SOFT WITH BSX4. UP TO THE BSC TO HAVE BM. PATIENT IS DIALYSIS PATIENT AND HAS RIGHT TESSIO FOR DIALYSIS --SUN. ABD INCISION IS HEALED. DONNY DRAINS CONTINUE TO HAVE SMALLER AMOUNTS OF PURULENT DRAINAGE. PATIENT CONTINUES ON ABT'S WITHOUT ADVERSE AFFECTS. FALL AND SAFETY PROTOCOLS IN PLACE. PATIENT ALSO USES SLIDE BOARD WHEN VERY TIRED. DENIES PAIN AT THIS TIME. CONTINUES TO PROGRESS SLOWLY TOWARDS D/C GOALS. WILL CONTINUE TO MONITER.
[2020-05-16 20:07] VITALS: BP 105/71
--- NOTE | 2020-05-17 01:25 | NUR ---
assumed care approx 1899 evening 05/16. pt alert and oriented x4, pleasant and cooperative. pt in good mood stating he felt like he was making progress with his therapy.pt voiding per urinal. pt appears to be sleeping soundly. bed alarm on and call light in reach. will continue to monitor.
[2020-05-17 05:30] LABS: ABSOLUTE NEUTROPHILS 7.6 thou/uL (1.4-8.2); BASOPHILS 0.4 % (0.0-2.0); EOSINOPHILS 1.4 % (0.0-3.0); HEMATOCRIT 31.6 % (42.0-52.0); HEMOGLOBIN 10.1 gm/dL (14.0-18.0); LYMPHOCYTES 18.1 % (24.0-44.0); MCH 29.1 pg (26.0-34.0); MCHC 31.9 g/dL (28.0-37.0); MCV 91.3 fL (80.0-100.0); MONOCYTES 9.5 % (1.0-8.0); PLATELET COUNT 219 thou/uL (150-400); POLYS 70.6 % (36.0-66.0); RBC 3.46 mil/uL (4.50-6.00); RDW 15.7 % (10.5-14.5); WBC 10.8 thou/uL (4.0-11.0)
[2020-05-17 05:57] LABS: CALCIUM 8.9 mg/dL (8.5-10.1); CREATININE 2.2 mg/dL (0.7-1.3); MAGNESIUM 1.9 mg/dL (1.8-2.4); POTASSIUM 3.7 mmol/L (3.5-5.1)
[2020-05-17 07:48] VITALS: BP 130/82
--- NOTE | 2020-05-17 10:21 | NUR ---
ASSUMED CARE AT 0700. SLEPT FAIRLY WELL. ALERT AND ORIENTATED X 4. COMPLAINED OF L GREAT TOE PAIN AND TENDER. WAS ON METHYLPRED LAST WEEK AND CHONG RECEPTIONIST/TELEPHONE OPERATOR NOTIFIED AND WILL ADD ALLOPURINOL. PT HAS POOR APPETITE AND ONLY DRINKS 100% OF SUPPLEMENT. ABDOMINAL WOUND HEALED. DONNY DRAINS INTACT WITH MIN OUTPUT. OLIGURIC WITH MIN URINE OUTPUT. PARTICIPATING WITH THERAPY AND PROGRESSING TOWARDS GOAL. PLAN FOR DC HOME ON 05/21/2020.
[2020-05-17 19:55] VITALS: BP 98/68
--- NOTE | 2020-05-18 02:43 | NUR ---
HAS USED URINAL TWICE THIS SHIFT FOR [facility] URINE. RE REQUESTED DENTAL FLOSS AND HE APPRECIATED ME FINDING SOME AND HE USED IT APPROPRIATELY. PATIENT REPOSITIONING SELF WHILE TAKING CARE NOT TO ROLL ONTO EITHER OF HIS DONNY BULBS. JPs PATENT AND DRAINING SMALL AMOUNTS OF THICK DRAINAGE. TOE PAINS CONTINUE INTERMITTENTLY. LOOKING FORWARD TO GOING SUNDAY, IT HAS BEEN A FEW MONTHS. LOW AIR LOSS MATTRESS THERAPY CONTINUES
[2020-05-18 06:17] LABS: CALCIUM 8.8 mg/dL (8.5-10.1); CREATININE 2.7 mg/dL (0.7-1.3); PHOSPHORUS 2.1 mg/dL (2.5-4.9); POTASSIUM 3.7 mmol/L (3.5-5.1)
[2020-05-18 07:20] VITALS: BP 118/80
--- NOTE | 2020-05-18 13:08 | NUR ---
team meeting, reccommendation: working more with therapy. will cont to need wheel chair, start outpt dialysis. HH ( pt, ot, st, nurse, sw ). sig other to assist with medications and bills. dc 05/21. family coming in on thur for train with therapy. will need bsc
[2020-05-18 19:20] VITALS: BP 98/64
--- NOTE | 2020-05-19 04:48 | NUR ---
ASSESSMENT: PT REMAIN ALERT AND ORIENT TIMES FOUR. ANTICIPATING LEAVING ON SUNDAY. SLEPT MOST OF THE NIGHT. VSS, AFEBRILE. ITEMS WITHIN REACH, URINAL, CELL PHONE AND CALL BUTTON. TOLERATING PO INTAKE. GOOD PROGRESS TOWARDS DC GOALS. WILL CONTINUE TO MONITOR.
[2020-05-19 05:56] LABS: CALCIUM 8.3 mg/dL (8.5-10.1); PHOSPHORUS 1.7 mg/dL (2.5-4.9); POTASSIUM 3.7 mmol/L (3.5-5.1)
--- NOTE | 2020-05-19 14:40 | NUR ---
ASSUMED CARE AT 0700. ALERT AND ORIENTATED. SLEPT FAIRLY WELL LAST NIGHT. APPETITE HAS BEEN POOR AND ONLY DRINKS SUPPLEMENT. MADE SOME FRUIT MILK SHAKE AND PT ONLY HAD 25% OF IT. PT HAS BEEN ON REMERON FOR MEAL STIMULANT WITH NOT MUCH EFFECT ON HIS APPETITE. PT REPORTED FOOD IS VERY DRY AND NON APPETIZING. PARTICIAPTING WITH THERAPY AND PROGRESSING TOWARDS GOAL. PLAN FOR DC HOME ON SUNDAY. DENIES ANY PAIN. DONNY DRAINS INSITU WITH MIN DRAINAGE. SPOKE TO DR JUSTIN (GEN SURGERY) AND TOLD ABOUT PT'S CT SCAN AND FOR ANY RECOMMENDATION. NO NEW ORDERS RECEIVED FOR NOW.
[2020-05-19 19:25] VITALS: BP 97/62
--- NOTE | 2020-05-20 04:10 | NUR ---
ASSESSMENT CHARTED, VSS,HYDROCODONE GIVEN AT HS FOR C/O OF GOUT PAIN IN R GREAT TOE, SLEEPING IN ROOM THRU MOST OF THE NOC, DONNY DRAINS WITH MINIMAL AMT OF DRAINAGE, PLANNING ON GOING HOME SUNDAY, DIALYSIS TODAY, WILL CON'T TO MONITOR.
[2020-05-20 05:40] LABS: CALCIUM 8.9 mg/dL (8.5-10.1); CREATININE 2.7 mg/dL (0.7-1.3); POTASSIUM 3.8 mmol/L (3.5-5.1)
[2020-05-20 08:00] VITALS: BP 134/85
[2020-05-20 08:35] LABS: BASOPHILS 0.4 % (0.0-2.0); EOSINOPHILS 1.6 % (0.0-3.0); HEMATOCRIT 30.8 % (42.0-52.0); HEMOGLOBIN 9.6 gm/dL (14.0-18.0); LYMPHOCYTES 22.5 % (24.0-44.0); MCH 28.6 pg (26.0-34.0); MCHC 31.3 g/dL (28.0-37.0); MCV 91.4 fL (80.0-100.0); MONOCYTES 12.3 % (1.0-8.0); PLATELET COUNT 207 thou/uL (150-400); POLYS 63.2 % (36.0-66.0); RBC 3.36 mil/uL (4.50-6.00); RDW 16.1 % (10.5-14.5); WBC 9.5 thou/uL (4.0-11.0)
[2020-05-20 09:30] VITALS: BP 124/87
--- NOTE | 2020-05-20 12:00 | NUR ---
david visited with lorenza while working on car transfer with physical. they would like dialysis in morning tomorrow before being dc, mati will deliver wheel chair prior to dc. will cont following as needed for dc needs.
--- NOTE | 2020-05-20 13:00 | NUR ---
ASSUMED CARE AT 0700. ALERT AND ORIENTATED. SLEPT FAIR. DENIES ANY PAIN. APPETITE IS POOR, AND DRANK MOSTLY HIS SUPPLEMENT. ON REMERON FOR APPETITE STIMULANT. UP WITH MIN ASSIST TO BATHROOM. OLIGURIC. ON HD. DONNY X 2 INTACT WITH MIN DRAINAGE. CALLED [facility] AND MADE A FOLLOW UP APPT WITH DR [facility] ON 05/25/20 AT 1300. PLAN FOR DC HOME TOMORROW.
[2020-05-20 14:27] VITALS: BP 134/85
[2020-05-20] MEDS ORDERED: ACEROLA C500 MG PO (16:05)
[2020-05-20] MEDS ORDERED: ALLOPURINOL 10100 M3 PO (16:05)
[2020-05-20] MEDS ORDERED: PACERONE200 MG PO (16:06)
[2020-05-20] MEDS ORDERED: PROTONIX40 M2 PO (16:06)
[2020-05-20] MEDS ORDERED: ELIQUIS5 MG PO (16:06)
[2020-05-20] MEDS ORDERED: CARVEDILOL12.5 MG PO (16:06)
[2020-05-20] MEDS ORDERED: FOLIC ACID1 MG PO (16:06)
[2020-05-20] MEDS ORDERED: VITAMIN D310 MC4 PO (16:06)
--- NOTE | 2020-05-20 16:41 | NUR ---
FAXED REFERRAL TO [facility] SPOKE WITH DOT IN ADM SHE CAN ACCEPT AT DC TOMORROW 05/21.
[2020-05-20 20:12] VITALS: BP 109/72
--- NOTE | 2020-05-21 03:31 | NUR ---
assumed care approx 1900 evening 05/20. pt alert and oriented x4, appropriate and cooperative. pt stated he was looking forward to being discharged. pt took hs meds with water tolerating well. pt appears to be sleeping soundly. bed alarm on and call light in reach. will continue to monitor.
[2020-05-21 05:17] LABS: ALBUMIN 2.1 g/dL (3.4-5.0); CALCIUM 8.9 mg/dL (8.5-10.1); CREATININE 3.1 mg/dL (0.7-1.3); PHOSPHORUS 2.1 mg/dL (2.5-4.9); POTASSIUM 4.1 mmol/L (3.5-5.1)
[2020-05-21] MEDS ORDERED: CARVEDILOL12.5 MG PO ×2 (08:32→12:26)
[2020-05-21] MEDS ORDERED: PACERONE200 MG PO ×2 (08:32→12:26)
[2020-05-21] MEDS ORDERED: ALLOPURINOL 10100 M3 PO ×2 (08:32→12:26)
[2020-05-21] MEDS ORDERED: ELIQUIS5 MG PO ×2 (08:32→12:26)
[2020-05-21] MEDS ORDERED: PROTONIX40 M2 PO ×2 (08:32→12:26)
[2020-05-21 09:07] VITALS: BP 109/72
--- NOTE | 2020-05-21 11:06 | NUR ---
ASSUMED CARE AT 0700 THIS MORNING. PT. IN GOOD SPIRITS HE IS DISCHARGING TODAY. HE WAS ABLE TO PULL HIMSELF UP IN BED THIS MORNING ON HIS OWN WITH LITTLE EFFORT. HE CONTINUES TO HAVE TWO DONNY DRAINS TO HIS RIGHT MID ABD. NEITHER DONNY SHOWS MUCH DRAINAGE. DR. ALLEN HERE AND WANTS PT. TO MAKE AN APPT. WITH HIS CLINIC IN TWO WEEKS. [phone]. W/C TO BE DELIVERED HERE THIS MORNING BEFORE PT. IS D/C'D. WILL CALL CHONG [phone] WHEN ARRIVES SO SHE CAN GO OVER HIS MEDICATIONS FOR HOME.
[2020-05-21] MEDS ORDERED: ACEROLA C500 MG PO (12:26)
[2020-05-21] MEDS ORDERED: VITAMIN D310 MC4 PO (12:26)
[2020-05-21] MEDS ORDERED: PROBIOTIC1 EAC1 PO (12:27)
--- NOTE | 2020-05-21 14:08 | NUR ---
PT DISCHARGING TODAY TO HOME WITH [facility] FAXED DC ORDERS/SUMMARY SPOKE WITH DOT IN INTAKE SHE RECEIVED ORDERS AND WILL ARRANGE VISITS WITH PT.
--- NOTE | 2020-05-21 15:27 | NUR ---
FAXED DISCHARGE SUMMARY AND FLOW SHEETS TO [facility]. CONFIRMED WITH AUGUSTO/FELISHA AT [facility] THAT SHE RECEIVED AND PATIENT WILL RESUME DIALYSIS ON 05/24/20. [facility] P [phone]; FAX [phone]
--- NOTE | 2020-05-24 16:34 | NUR ---
cm received call from malvin [facility] asking if pt was dc on and if that's why he did not go to dialysis. if can call jerry and check on him. cm passed on would follow up with pt.
== END 2020-05-21 13:00 | disposition home health service (06) | DRG 91 ==
PROVIDERS: Hospitalist; Nurse Practitioner; Nurse Practitioner Family; ADMIT Physical Medicine & Rehabilitation; ATTEND Physical Medicine & Rehabilitation
PROC: 30233N1 Transfusion of Nonautologous Red Blood Cells into Peripheral Vein, Percutaneous Approach (ICD-10-PCS; principal; 2020-04-23)
PROC: 5A1D70Z Performance of Urinary Filtration, Intermittent, Less than 6 Hours Per Day (ICD-10-PCS; 2020-05-01)
PROC: 5A1D70Z Performance of Urinary Filtration, Intermittent, Less than 6 Hours Per Day (ICD-10-PCS; 2020-05-04)
PROC: 5A1D70Z Performance of Urinary Filtration, Intermittent, Less than 6 Hours Per Day (ICD-10-PCS; 2020-05-05)
PROC: 5A1D70Z Performance of Urinary Filtration, Intermittent, Less than 6 Hours Per Day (ICD-10-PCS; 2020-05-11)
PROC: 5A1D70Z Performance of Urinary Filtration, Intermittent, Less than 6 Hours Per Day (ICD-10-PCS; 2020-05-13)
PROC: 5A1D70Z Performance of Urinary Filtration, Intermittent, Less than 6 Hours Per Day (ICD-10-PCS; 2020-05-18)
DX: G72.81 Critical illness myopathy (principal); L89.153 Pressure ulcer of sacral region, stage 3; L89.323 Pressure ulcer of left buttock, stage 3; U07.1 COVID-19; J12.82 Pneumonia due to coronavirus disease 2019; N18.6 End stage renal disease; E43 Unspecified severe protein-calorie malnutrition; J96.01 Acute respiratory failure with hypoxia; I42.9 Cardiomyopathy, unspecified; I13.2 Hypertensive heart and chronic kidney disease with heart failure and with stage 5 chronic kidney disease, or end stage renal disease; I50.22 Chronic systolic (congestive) heart failure; N17.9 Acute kidney failure, unspecified; D64.9 Anemia, unspecified; E11.22 Type 2 diabetes mellitus with diabetic chronic kidney disease; K21.9 Gastro-esophageal reflux disease without esophagitis; E87.6 Hypokalemia; E78.5 Hyperlipidemia, unspecified; R53.81 Other malaise; F01.50 Vascular dementia, unspecified severity, without behavioral disturbance, psychotic disturbance, mood disturbance, and anxiety; F43.23 Adjustment disorder with mixed anxiety and depressed mood; E83.42 Hypomagnesemia; I48.0 Paroxysmal atrial fibrillation; M10.9 Gout, unspecified; G47.09 Other insomnia; K59.00 Constipation, unspecified; Z79.01 Long term (current) use of anticoagulants; Z90.49 Acquired absence of other specified parts of digestive tract; Z79.899 Other long term (current) drug therapy; Z68.20 Body mass index [BMI] 20.0-20.9, adult
CPT/HCPCS: 10112; 32100